=== PATIENT | male | born 1950 | race Caucasian/White ===

== ENCOUNTER → 2019-09-15 09:24 | Outpatient (BNVA) | payer MEDICARE, OTHER, SELFPAY | PROVIDERS: Family Provider Family Medicine; PCP Family Medicine; Visit Provider Specialist | DX: G25.2 Other specified forms of tremor (principal) | CPT/HCPCS: 99204 ==

== ENCOUNTER 2021-08-02 06:00 | Outpatient (RCR) | payer OTHER, SELFPAY | END 2021-08-15 23:59 | disposition home or self-care (01) | LOC: MPT 06:00 | PROVIDERS: PCP Nurse Practitioner Family; Visit Provider Internal Medicine | DX: M54.50 Low back pain, unspecified (principal) | CPT/HCPCS: 97110; 97162 ==

== ENCOUNTER 2021-08-09 07:20 | Outpatient (CLI) | payer OTHER, SELFPAY ==
--- NOTE | 2021-08-09 07:27 | MR_ITS ---
WS: [id number] MRI LUMBAR SPINE NONCONTRAST TECHNIQUE: Sagittal T1, T2 and STIR imaging. Axial T1 and T2 imaging. CLINICAL INFORMATION: R LBP SINCE LAST SPRING, WORSENING COMPARISON: None. FINDINGS: Mild lumbar curve. No acute compression. 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 L1-L2: Normal. L2-L3: Mild annular bulging with slight narrowing of the RIGHT subarticular recess. Foramen are paten t. L3-L4: Mild annular bulging with mild central canal stenosis. Mild facet arthropathy with ligamentum flavum flavum hypertrophy. Narrowing of the subarticular recess bilaterally. Mild bilateral foraminal narrowing. L4-L5: Mild annular bulging in combination with facet arthropathy and ligamentum flavum flavum hypert rophy results in severe central canal stenosis. Impingement traversing L5 nerve roots bilaterally. Mi ld to moderate LEFT greater than RIGHT foraminal narrowing. L5-S1: Mild annular bulging. Spinal canal and foramen are patent. Mild facet arthropathy. Postoperative changes ACDF C5-C7. Small bilateral renal cysts. MR/MR lumbar spine wo con* [id number] IMPRESSION: 1. 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 2. Mild central canal stenosis L3-L4 and severe central canal stenosis L4-L5 w ith mild annular bulging in combination with facet arthropathy and ligamentum f lavum hypertrophy. Impingement traversing L5 nerve roots bilaterally. 3. Slight narrowing of the subarticular recess RIGHT L2-L3 and bilateral L3-L4 . 4. Mild bilateral L3-L4 and udkp-lo-okqixedc bilateral L4-L5 foraminal narrowi ng worse LEFT L4-L5. Small annular fissure. 5. Moderate facet arthropathy L4-L5.
== END 2021-08-09 07:21 | disposition home or self-care (01) ==
LOC: RAD 07:22
PROVIDERS: PCP Nurse Practitioner Family; Visit Provider Nurse Practitioner Family
DX: M48.061 Spinal stenosis, lumbar region without neurogenic claudication (principal); M47.816 Spondylosis without myelopathy or radiculopathy, lumbar region
CPT/HCPCS: 72148

== ENCOUNTER → 2021-09-15 13:30 | Outpatient (BNVA) | payer MEDICARE, SELFPAY | PROVIDERS: PCP Nurse Practitioner Family; Visit Provider Internal Medicine Cardiovascular Disease | DX: G25.0 Essential tremor (principal); E78.5 Hyperlipidemia, unspecified; G62.9 Polyneuropathy, unspecified; I25.10 Atherosclerotic heart disease of native coronary artery without angina pectoris; Z86.73 Personal history of transient ischemic attack (TIA), and cerebral infarction without residual deficits; I12.9 Hypertensive chronic kidney disease with stage 1 through stage 4 chronic kidney disease, or unspecified chronic kidney disease; E11.9 Type 2 diabetes mellitus without complications; N18.9 Chronic kidney disease, unspecified; I73.9 Peripheral vascular disease, unspecified | CPT/HCPCS: 99213; 99214 ==

== ENCOUNTER 2021-09-29 19:01 | Inpatient (IN) | payer MEDICARE, SELFPAY ==
[2021-09-29] VITALS (12 sets, daily range): BP systolic 145–229; BP diastolic 93–133; PULSE 54–61; RESP 14–19; TEMP 36.9; O2SAT 94–96; BMI 33.4
--- NOTE | 2021-09-29 19:10 | ECG_ITS ---
[facility] Test Date: 2021-09-29 Pat Name: Enrique Wong Department: Room: Gender: Male Rn Admission: : 1950 Requested By: Larry Fernando Order Number: [id number] Delilah MD: Sai Venegas M.D. Measurements Intervals [place] Rate: 56 P: 43 ND: 196 QRS: 1 QRSD: 115 T: 42 QT: 438 QTc: 423 Interpretive Statements SINUS BRADYCARDIA INCOMPLETE RIGHT BUNDLE BRANCH BLOCK [90+ ms QRS DURATION, TERMINAL R IN V1/V2, 40+ ms S IN I/aVL/V4/V5/V6] Compared to ECG 03/19/2019 22:17:22 Sinus arrhythmia no longer present Electronically Signed On 09-30-2021 18:15:33 CDT by Sai Venegas M.D. [id number]
--- NOTE | 2021-09-29 19:10 | CTR_ITS ---
PROCEDURE INFORMATION: Exam: CT Head Without Contrast Exam date and time: 09/29/2021 9:16 PM Age: 70 years old Clinical indication: Pain; Patient HX: C/O headache with dizziness and blurry vision. BP over 200 systolic. ; Additional info: Headache dizzy TECHNIQUE: Imaging protocol: Computed tomography of the head without contrast. Radiation optimization: All CT scans at this facility use at least one of these dose optimization techniques: automated exposure control; mA and/or kV adjustment per patient size (includes targeted exams where dose is matched to clinical indication); or iterative reconstruction. COMPARISON: CT head 01/17/2017 9:56 PM RADIATION DOSE METRICS: Total DLP (mGy-cm): 940.25 FINDINGS: Brain: No acute intracranial hemorrhage or mass effect. There is decreased attenuation in the periventricular white matter, likely from microvascular disease. No definite acute infarct by CT. MRI could be more sensitive/specific for detection, as clinically directed. Cerebral ventricles: Ventricle size is normal for age. Paranasal sinuses: Included paranasal sinuses are essentially clear. Mastoid air cells: No significant acute finding. Orbital cavities: Chronic calcification and high attenuation fluid again seen involving the globe in the right orbit, not significantly changed. Vasculature: Vascular calcifications in the internal carotid and vertebral basilar systems. Bones/joints: No definite acute skull fracture. Soft tissues: No significant acute finding. CT/CT head wo con* [id number] IMPRESSION: 1. No acute intracranial hemorrhage or mass effect. 2. Changes of microvascular disease. 3. No definite acute infarct by CT, see above. 4. Other findings discussed above.
--- NOTE | 2021-09-29 19:10 | XRR_ITS ---
PROCEDURE INFORMATION: Exam: XR Chest Exam date and time: 09/29/2021 8:22 PM Age: 70 years old Clinical indication: Other: Dizzy; Additional info: Dizzyness TECHNIQUE: Imaging protocol: XR of the chest. Views: 1 view. COMPARISON: CR Chest 1 [place] [id number] 03/19/2019 7:37 PM FINDINGS: Lungs: No CHF/pulmonary edema. Poor inspiration somewhat limits evaluation, especially of the lung bases. Visible lungs appear essentially clear. Pleural spaces: No visible pneumothorax. No definite pleural fluid. Heart/Mediastinum: Heart size is within normal limits. Bones/joints: No significant acute finding. XR/XR chest 1V portable [id number] IMPRESSION: 1. Essentially unremarkable single view chest for age. 2. Other findings discussed above.
--- NOTE | 2021-09-29 19:39 | ED_ITS ---
HPI - General Adult General: Chief complaint: General Medical Stated complaint: High Blood Pressure\Headache\Dizzy\Blurred Vision Time Seen by Provider: 09/29/21 19:39 History of Present Illness: Mr. Sharpe is a 70-year-old gentleman with significant past medical history of coronary disease with stenting, tremor, carotid stenosis, dyslipidemia, hypertension, diabetes, chronic kidney disease, peripheral arterial disease, history of stroke who presents to the emergency department due to uncontrolled blood pressure. He noticed it worse over the past few days and has never had blood pressure as high as it has greater than 200 systolic. He notes headache, lightheadedness, and generalized unwell feeling. He does have a history of stroke but denies new focal neurologic symptoms associated with this. Course of symptoms has persisted. Intensity is moderate. He does sometimes feel equally as bad as when blood pressure is too low. Baseline at home was probably in the 160-170 range for systolic. He has a history of difficulty with controlling blood pressure and is on a number of antihypertensives. He endorses following with both cardiology Dr. Villanueva at our facility also at the [place]. He was having perhaps improved blood pressure control when he was previously on nifedipine though he had intermittent episodes of hypotension and adverse reactions to this. He was seen by Dr. Villanueva on 09/15 and nifedipine at that time was changed from nighttime, when he woke up with sleep disturbances, to daytime however this caused problems including symptomatic hypotension as well. Apparently he was seen a few days ago by his physician at the [facility] and nifedipine was totally removed. He has still been taking his other medications as prescribed however now has hypertension. Onset (ago): day(s) Severity: moderate Review of Systems General: Reports: 10 or more systems reviewed and unremarkable except in HPI and below PFSH ED PFSH: Medical History ASHD (arteriosclerotic heart disease) Carotid stenosis Chronic pain CKD (chronic kidney disease) CVA (cerebral vascular accident) Diabetes Essential hypertension Essential tremor GERD (gastroesophageal reflux disease) Hyperlipidemia PAD (peripheral artery disease) Peripheral neuropathy SOB (shortness of breath) Tingling of right upper extremity Surgical History S/P angioplasty with stent Family History Other Cancer Diabetes Hypertension Social History Smoking and tobacco status: never smoked Alcohol intake: current Alcohol intake frequency: 0-2 Drinks per Day Alcohol type: beer Household members: spouse Marital status: service: Yes branch: [employer] Current occupational status: employed Current occupation: [employer] Current gender identity: Male Physical Exam Const: COMMON NORMALS: alert GENERAL APPEARANCE: cooperative and well developed HENMT: COMMON NORMALS: normocephalic and atraumatic HEAD & SCALP: normocephalic and atraumatic Eye: COMMON NORMALS: conjunctivae normal CONJUNCTIVA: Yes conjunctivae normal SCLERA: sclerae normal Neck/C-Spine: COMMON NORMALS: supple GENERAL: Yes trachea midline Resp: COMMON NORMALS: clear to auscultation bilaterally EFFORT & INSPECTION: Yes able to speak in complete sentences AUSCULTATION: clear to auscultation bilaterally Cardio: COMMON NORMALS: regular rate and regular rhythm RATE: regular rate RHYTHM: regular rhythm GI: COMMON NORMALS: Soft to palpation PALPATION: Yes Soft to palpation and No Tenderness to palpation present (GI) PERCUSSION: normal to percussion Extremity: GENERAL: Yes normal exam except as noted and No edema Neuro: COMMON NORMALS: moves all extremities SENSORIUM/ORIENTATION: Yes alert and No Orientation impaired OTHER: 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 Fine motor decreased with tremor noted in right upper extremity. Changes reported to be chronic Psych: COMMON NORMALS: mental status grossly normal and Normal thought process present THOUGHT PROCESS: Normal thought process present Course ED course: - Patient was seen and evaluated by me at bedside - Patient placed on cardiac monitors, IV access obtained - Initial evaluation notable for exam as above - Labs and xrays personally interpreted by me. EKGs from 1938 and 2200 personally interpreted by me. Sinus rhythm with borderline interventricular conduction delay. No STEMI. -Antihypertensive ordered - Labs notable for no leukocytosis, normal hemoglobin. Metabolic panel with mild evidence of intravascular dehydration, delta troponin negative. Normal renal function. - Imaging notable for no lobar consolidation or pneumothorax. CT head negative for acute intracranial hemorrhage or mass. - Additional dose of antihypertensive ordered without significant sustained improvement. - As noted in prior cardiology notes patient has a history of difficulty getting to control blood pressure. Discussed with cardiology who recommended overnight observation. Recommend switching metoprolol to amlodipine 10 mg daily, carvedilol 25 mg twice daily, hydralazine increased to every 6 hours, consideration for addition of losartan. - Upon serial reexamination after treatment the patient was similar - Based on patient history, evaluation, and testing as interpreted the most likely cause of the patient's condition is hypertensive urgency - The results of ED evaluation were discussed with the patient including plan for admission due to requirement for level of care not available if discharged to prevent significant worsening/deterioration. - Admitting service was contacted and Dr Vega with the hospitalist service agreed to admit the patient - Patient was admitted without further deterioration or significant events. Note: Click bubbles or prepopulated villalobos in note writing are used for assistance with data collection and billing and are inherently more limited than narrative and other text portions of this note. Please use narrative for additional clinical history and defer to narrative/free test for any case of contradictory information. If information appears in only free text or click bubble it should be considered present or absent as reported. Please contact note life insurance underwriter for clarifications of clinical information or contradictory information. MDM is a brief summary, contradictory or erroneous seeming information should be clarified and full note should be reviewed. Vital Signs: Vital signs: Vital Signs Temperature 98.2 F 10/01/21 12:20 Pulse Rate 87 10/01/21 12:20 Respiratory Rate 23 H 10/01/21 12:20 Blood Pressure 162/84 10/01/21 12:20 Pulse Oximetry 96 10/01/21 12:20 MDM - General Adult Medical Decision Making 70-year-old gentleman with history of difficult to control hypertension on multiple agents with recent discontinuation of nifedipine presenting to the emergency department with headache, lightheadedness, dizziness, and generally unwell feeling associated with chest discomfort. No evidence of endorgan dysfunction. Attempted p.o. medication and IV medication without significant improvement. Treatment limited in the emergency department by bradycardia. Admitted for definitive management after discussion with cardiology. Medical Records I reviewed the patient's medical records. Lab Data I reviewed the patient's lab results. : 10/01/21 03:45 10/01/21 03:45 Radiology Impressions Chest X-Ray 09/29/21 19:10 IMPRESSION: 1. Essentially unremarkable single view chest for age. 2. Other findings discussed above. Head CT 09/29/21 19:10 IMPRESSION: 1. No acute intracranial hemorrhage or mass effect. 2. Changes of microvascular disease. 3. No definite acute infarct by CT, see above. 4. Other findings discussed above. Laboratory Results WBC 7.3 10^3/uL (4.0-10.0) 09/29/21 19:52 RBC 4.54 10^6/uL (4.1-5.3) 09/29/21 19:52 Hgb 13.5 g/dL (11.7-16.6) 09/29/21 19:52 Hct 40.5 % (42.0-52.0) L 09/29/21 19:52 MCV 89.2 fl (80-94) 09/29/21 19:52 MCH 29.7 pg (28.0-34.0) 09/29/21 19:52 MCHC 33.3 g/dL (30.0-36.0) 09/29/21 19:52 RDW 12.1 % (12.1-15.1) 09/29/21 19:52 Plt Count 196 10^3/cmm (130-400) 09/29/21 19:52 MPV 9.6 fL (7.4-10.4) 09/29/21 19:52 Neut % (Auto) 57.0 % 09/29/21 19:52 Lymph % (Auto) 26.6 % 09/29/21 19:52 [place] % (Auto) 10.7 % 09/29/21 19:52 Eos % (Auto) 4.2 % 09/29/21 19:52 Baso % (Auto) 1.4 % 09/29/21 19:52 Neut # (Auto) 4.17 10^3/uL (1.8-7.7) 09/29/21 19:52 Lymph # (Auto) 2.0 10^3/uL (0.8-4.8) 09/29/21 19:52 [place] # (Auto) 0.8 10^3/uL (0.2-0.9) 09/29/21 19:52 Eos # (Auto) 0.3 10^3/uL (0.0-0.8) 09/29/21 19:52 Baso # (Auto) 0.1 10^3/uL (0.0-0.1) 09/29/21 19:52 Nucleated RBC % (auto) 0 % 09/29/21 19:52 Nucleated RBCs # 0.0 /100WBC 09/29/21 19:52 Sodium 133 mmol/L (136-145) L 09/29/21 19:52 Potassium 4.4 mmol/L (3.5-5.1) 09/29/21 19:52 Chloride 96 mmol/L (98-107) L 09/29/21 19:52 Carbon Dioxide 30 mmol/L (22-29) H 09/29/21 19:52 Anion Gap 11.4 (5-19) 09/29/21 19:52 BUN 16 mg/dL (8-23) 09/29/21 19:52 Creatinine 1.2 mg/dL (0.7-1.2) 09/29/21 19:52 GFR Calculation Not Reportable 09/29/21 19:52 Glucose 145 mg/dL (65-115) H 09/29/21 19:52 Calculated Osmolality 280 mOsm/kg (285-295) L 09/29/21 19:52 Calcium 9.3 mg/dL (8.5-10.5) 09/29/21 19:52 Magnesium 1.9 mg/dL (1.7-2.3) 09/29/21 19:52 Total Bilirubin 0.2 mg/dL (0.15-1.2) 09/29/21 19:52 AST 16 U/L (0-40) 09/29/21 19:52 ALT 23 U/L (0-41) 09/29/21 19:52 Alkaline Phosphatase 60 IU/L (40-130) 09/29/21 19:52 Troponin T Baseline 19 ng/L (0-15) H 09/29/21 19:52 Troponin T 120 Minute 18.06 ng/L (0-15) H 09/29/21 21:52 Delta Troponin T -0.94 ABS# (0-10) L 09/29/21 21:52 Total Protein 7.3 g/dL (6.6-8.7) 09/29/21 19:52 Albumin 4.3 g/dL (3.5-5.2) 09/29/21 19:52 Globulin 3.0 g/dL (1.3-4.6) 09/29/21 19:52 TSH 1.74 uIU/mL (0.27-4.20) 09/29/21 19:52 Discharge Plan Discharge Patient Disposition: Placed in Observation Admit Provider: Chris Vega Clinical Impression: Hypertensive urgency Discharge Diet: Cardiac Discharge Activity: Increase activity as tolerated Coding Level of Care Code ED Volleyball Assistant Coach for Chg Fwd Exam Comprehensive
[2021-09-29 19:57] LABS: Basophils # 0.1 10^3/uL (0.0-0.1); Basophils % 1.4 %; Eosinophils # 0.3 10^3/uL (0.0-0.8); Eosinophils % 4.2 %; Hematocrit 40.5 % (42.0-52.0); Hemoglobin 13.5 g/dL (11.7-16.6); Lymphocytes % 26.6 %; Mean Corpuscular HGB Conc 33.3 g/dL (30.0-36.0); Mean Corpuscular Hemoglobin 29.7 pg (28.0-34.0); Mean Corpuscular Volume 89.2 fl (80-94); Mean Platelet Volume 9.6 fL (7.4-10.4); Monocytes # 0.8 10^3/uL (0.2-0.9); Monocytes % 10.7 %; Neutrophils # 4.17 10^3/uL (1.8-7.7); Nucleated Red Blood Cells % 0 %; Platelet Count 196 10^3/cmm (130-400); Red Blood Count 4.54 10^6/uL (4.1-5.3); Red Cell Distribution Width 12.1 % (12.1-15.1); White Blood Count 7.3 10^3/uL (4.0-10.0)
[2021-09-29] MEDS: hyDRALAzine 20 mg/mL INJ 1 mL 10 MG IVP ×2 (20:18→23:34)
[2021-09-29 20:20] LABS: Troponin(5th) Baseline 19 ng/L (0-15)
[2021-09-29 20:30] LABS: Alanine Aminotransferase 23 U/L (0-41); Albumin Level 4.3 g/dL (3.5-5.2); Alkaline Phosphatase 60 IU/L (40-130); Anion Gap 11.4 (5-19); Aspartate Amino Transferase 16 U/L (0-40); Blood Urea Nitrogen 16 mg/dL (8-23); Calcium 9.3 mg/dL (8.5-10.5); Carbon Dioxide 30 mmol/L (22-29); Chloride 96 mmol/L (98-107); Glucose 145 mg/dL (65-115); Magnesium 1.9 mg/dL (1.7-2.3); Osmolality Calculated 280 mOsm/kg (285-295); Potassium 4.4 mmol/L (3.5-5.1); Sodium 133 mmol/L (136-145); Thyroid Stimulating Hormone 1.74 uIU/mL (0.27-4.20); Total Bilirubin 0.2 mg/dL (0.15-1.2); Total Protein 7.3 g/dL (6.6-8.7)
--- NOTE | 2021-09-29 21:10 | ECG_ITS ---
[facility] Test Date: 2021-09-29 Pat Name: Enrique Wong Department: Room: Gender: Male Reo Asset Manager: : 1950 Requested By: Larry Fernando Order Number: [id number] Delilah MD: Sai Venegas M.D. Measurements Intervals [place] Rate: 57 P: 52 NM: 193 QRS: 7 QRSD: 122 T: 43 QT: 463 QTc: 454 Interpretive Statements SINUS BRADYCARDIA POSSIBLE RIGHT VENTRICULAR CONDUCTION DELAY [RSR (QR) IN V1/V2] Compared to ECG 09/29/2021 19:38:10 Incomplete right bundle-branch block no longer present Electronically Signed On 09-30-2021 18:22:17 CDT by Sai Venegas M.D. [id number]
[2021-09-29] MEDS: hyDRALAzine 25 mg Tablet 100 MG PO (22:14)
[2021-09-29 22:32] LABS: Troponin 5 2HR 18.06 ng/L (0-15)
[2021-09-29 22:34] LABS: Troponin 5 2HR Delta -0.94 ABS# (0-10)
[2021-09-29] MEDS: amlodipine 5 mg Tablet PO (23:35)
[2021-09-29] MEDS: carvedilol 25 mg Tablet PO (23:35)
[2021-09-30] VITALS (33 sets, daily range): BP systolic 85–192; BP diastolic 41–91; PULSE 54–81; RESP 13–23; TEMP 36.4–36.6; O2SAT 91–95; BMI 30.6
--- NOTE | 2021-09-30 00:27 | ECG_ITS ---
[facility] Test Date: 2021-09-30 Pat Name: Enrique Wong Department: Room: 105 Gender: Male Coordinator Of Genetic Services: : 1950 Requested By: Chris Vega Order Number: [id number] Delilah MD: Sai Venegas M.D. Measurements Intervals [place] Rate: 57 P: 32 DC: 184 QRS: 8 QRSD: 102 T: 37 QT: 443 QTc: 432 Interpretive Statements SINUS BRADYCARDIA Compared to ECG 09/29/2021 22:00:54 No significant changes Electronically Signed On 09-30-2021 18:17:03 CDT by Sai Venegas M.D. [email or web address] [facility]ftsfr[facility] [email or web address]-rittman [email or web address]/store/OM/[id number]
--- NOTE | 2021-09-30 00:30 | P.HP_ITS ---
Providers/Chief Complaint Primary Care Provider: Charlene Webb NP Chief Complaint: High Blood Pressure\Headache\Dizzy\Blurred Vision History of Present Illness The patient is a 70-year-old male who presents chief complaint of my blood pressure got too high . Per the patient's , his blood pressure has been running high for the last few days leading up to his hospitalization. He indicates that he developed headache as well as blurry vision. He also admits to lightheadedness. He denies chest pain, dyspnea, dizziness, diaphoresis, palpitations, since rapid heartbeat, sense of new regular heartbeat. He denies diplopia. He denies peripheral edema. In the emergency department his blood pressure was found to be elevated. The patient's , who is the patient's primary personal caregiver, indicates that the patient is compliant with medication intake however it appears questionable as to whether he is compliant with appoin tment follow-up. He presents for further evaluation Review of Systems General: Reports: 10 or more systems reviewed and unremarkable except in HPI and below Medications/Allergies Home Medications Medication Instructions Recorded Confirmed Last Taken Type aspirin 81 mg tablet,delayed 81 mg PO DAILY tab 07/01/19 09/29/21 09/29/21 History release (Adult Low Dose Aspirin) fluticasone propionate 50 1 spray INTRANASAL BID 07/01/19 09/29/21 09/29/21 History mcg/actuation nasal spray,suspension (Allergy Relief (fluticasone)) melatonin 3 mg tablet (Melatin) 3 mg PO BEDTIME tab 07/01/19 09/29/21 09/28/21 History nitroglycerin 0.4 mg sublingual 0.4 mg SUBLINGUAL Q5M PRN 07/01/19 09/29/21 Unknown History tablet (Nitrostat) omega-3 fatty acids 1,000 mg 1,000 mg PO BID 07/01/19 09/29/21 09/29/21 History capsule (Fish Oil Concentrate) omeprazole 20 mg capsule,delayed 20 mg PO DAILY cap 07/01/19 09/29/21 09/29/21 History release tamsulosin 0.4 mg capsule 0.4 mg PO DAILY cap 07/01/19 09/29/21 09/29/21 History metformin 500 mg tablet 1,000 mg PO BID tab 09/15/19 09/29/21 09/29/21 History rosuvastatin 40 mg tablet (Crestor) 20 mg PO BEDTIME tab 09/15/19 09/29/21 09/28/21 History primidone 50 mg tablet 50 mg PO BEDTIME tab 06/15/20 09/29/21 09/28/21 History cinnamon bark 500 mg capsule 1,000 mg PO DAILY cap 01/06/21 09/29/21 09/29/21 History (Cinnamon) coenzyme Q10 200 mg/gram oral 100 mg PO DAILY g 01/06/21 09/29/21 09/29/21 History powder (H2Q CoQ10) mecobalamin (vitamin B12) 1,000 2,500 mcg SUBLINGUAL DAILY tab 01/06/21 09/29/21 09/29/21 History mcg disintegrating tablet,sublingual triamcinolone acetonide 0.1 % 1 applic TOPICAL DAILY 01/06/21 09/29/21 Unknown History topical cream alprazolam 0.5 mg tablet 0.5 mg PO BID PRN tab 02/22/21 09/29/21 09/29/21 History magnesium oxide 400 mg PO DAILY 02/22/21 09/29/21 09/29/21 History hydralazine 100 mg tablet 100 mg PO TID tab 09/15/21 09/29/21 09/29/21 History loratadine 10 mg capsule 10 mg PO DAILY 09/15/21 09/29/21 09/29/21 History losartan 100 mg tablet 100 mg PO DAILY 09/15/21 09/29/21 09/29/21 History metoprolol succinate 100 mg 100 mg PO BID tab 09/15/21 09/29/21 09/29/21 History tablet,extended release 24 hr nifedipine 60 mg tablet,extended 60 mg PO DAILY 09/15/21 09/29/21 09/29/21 History release sertraline 100 mg tablet 100 mg PO DAILY 09/15/21 09/29/21 09/29/21 History Allergies Allergy/AdvReac Type Severity Reaction Status Date / Time paroxetine [From Paxil] Allergy Severe Unconscious Verified 09/15/21 14:04 PFSH Acute PFSH: Medical History ASHD (arteriosclerotic heart disease) Carotid stenosis Chronic pain CKD (chronic kidney disease) CVA (cerebral vascular accident) Diabetes Essential hypertension Essential tremor GERD (gastroesophageal reflux disease) Hyperlipidemia PAD (peripheral artery disease) Peripheral neuropathy SOB (shortness of breath) Tingling of right upper extremity Surgical History S/P angioplasty with stent Family History Other Cancer Diabetes Hypertension Social History Smoking and tobacco status: never smoked Alcohol intake: current Alcohol intake frequency: 0-2 Drinks per Day Alcohol type: beer Household members: spouse Marital status: service: Yes branch: [employer] Current occupational status: employed Current occupation: [employer] Current gender identity: Male Vitals/I&O/Wt Last Vital Signs Temp 98.5 F 09/29/21 19:20 Pulse 56 L 09/29/21 23:30 Resp 15 09/29/21 23:30 BP 194/97 09/29/21 23:30 Pulse Ox 95 09/29/21 23:30 Weight last 48 hrs Weight 99.79 kg Data : 09/29/21 19:52 09/29/21 19:52 A&P Assessment and plan (1) Hypertensive urgency: Status: Acute Plan Hypertensive emergency. Will monitor blood pressure closely. Hydralazine 100 mg p.o. 3 times daily plus clonidine 0.3 mg p.o. twice daily plus losartan 100 mg p.o. daily plus Imdur 90 mg p.o. daily Neuropathy Chronic pain BPH Depression Essential tremor Elevated troponin, query ACS. This may be a sequelae of hypertensive emergency. Will monitor patient on telemetry and check serial cardiac enzymes and monitor EKG periodically Hyponatremia. Will monitor sodium level intermittently. I am hesitant to start the patient on IV fluids at this time given his hypertensive emergency Seasonal allergies Anxiety Coronary artery disease, status post stent, status post angioplasty. Imdur 90 mg daily Diabetes. Will check fingerstick glucose before every meal and at bedtime and provide ? scale GERD Hyperlipidemia Obesity. The patient be counseled regarding left eye modification Peripheral vascular disease with carotid stenosis, patient status post left carotid endarterectomy History of CVA DVT prophylaxis. Bilateral SCD Attestations Medical Necessity Statement*: Patient's anticipated length of stay is greater than 2 midnights for control of his hypertensive emergency Coding Level of Care Code Acute Personnel Specialist for Prashantg Fwd Diagnoses Hypertensive urgency I16.0
[2021-09-30] MEDS: isosorbide mononitrate ER 60 mg Tablet 90 MG PO (02:28)
[2021-09-30] MEDS: cloNIDine 0.1 mg Tablet 0.3 MG PO (02:29)
[2021-09-30] MEDS: losartan 50 mg Tablet 100 MG PO (02:29)
[2021-09-30] MEDS: hyDRALAzine 25 mg Tablet 100 MG PO ×2 (02:30→16:29)
--- NOTE | 2021-09-30 04:08 | PC.NURSE ---
Blood pressure is down from 192/91 at 0240 to 94/47 now. He denies any dizziness or lightheadedness presently. He also reports his headache is gone. Informed Dr Vega. No new orders received presently.
[2021-09-30 06:24] LABS: Glucose Point of Care 147 mg/dL (70-110)
[2021-09-30 06:44] LABS: Anion Gap 14.7 (5-19); Blood Urea Nitrogen 18 mg/dL (8-23); Calcium 8.2 mg/dL (8.5-10.5); Carbon Dioxide 27 mmol/L (22-29); Chloride 100 mmol/L (98-107); Glucose 161 mg/dL (65-115); Osmolality Calculated 289 mOsm/kg (285-295); Potassium 4.7 mmol/L (3.5-5.1); Sodium 137 mmol/L (136-145)
--- NOTE | 2021-09-30 07:19 | PC.NURSE ---
received bedside report from night rn. at bedside, pt resting comfortably. no needs identified at this time. bp 94/54. reviewed poc and assumed care of patient.
[2021-09-30] MEDS: pantoprazole DR 40 mg Tablet PO (08:25)
[2021-09-30] MEDS: aspirin 81 mg EC Tablet PO (08:25)
[2021-09-30] MEDS: insulin lispro 100 unit/1 mL SUBCUT ×3 (08:25→20:47)
[2021-09-30] MEDS: sertraline 100 mg Tablet PO (08:25)
[2021-09-30] MEDS: fluticasone nasal spray 16gm Btl 1 SPRAY INTRANASAL (08:25)
--- NOTE | 2021-09-30 10:44 | PC.CHAP ---
Pastoral Care Encounter/Spiritual Assessment Type of Contact [] Declined traffic recorder visit [] Patient/Family/Request visit [] Outpatient visit [] Follow-up visit [] Physician referral [] Code/Alert [x] Routine visit [] Staff referral [] Actively dying [] Patient sleeping [x] Family support [] [] Out of room [] Palliative care [] [] Receiving care in room [] Pre-surgical visit [] Trauma [] Long length of stay [] ICU visit [] Other: Relational/Emotional Strength [] Patient feels connected with others/family/visitors/staff [] Distress [] Loneliness/isolation [] Abandonment Spirituality of Patient [] Person of Cindy [] Attends Islam of their Cindy [] Believes in Prayer [] Reads Bible or Adventism materials [] There are Spiritual issues to be addressed Matcher Offbearer Interventions [x] Prayer [x] Active listening [x] Non-anxious presence [x] Spiritual/emotional support [] Crisis/trauma care [] Spiritual counseling [] Bereavement support [] Provided bereavement packet [] Provided Bible/devotional materials [] Provided toy/stuffed animal, coloring book to patient or family member [] Provided Communion [] Anointing/Blackey [] Salvation [x] Completed spiritual assessment [] Other: Impact on Illness or Injury [] Angry [] Fearful [] Anxious [] Often cries [] Exhaustion [] Unable to work [] Unable to attend church [] Unable to walk/stand [] Unable to read [] Unable to drive [] Unable to eat/drink [] Unable to sleep [] Unable to be with family [] Patient intubated [] Other: Summary patient resting Time spent with patient 10 min
[2021-09-30 10:49] LABS: Glucose Point of Care 172 mg/dL (70-110)
--- NOTE | 2021-09-30 13:05 | USCV_ITS ---
Enrique Wogn Age: 70 Gender: M : 1950 Exam Date: 09/30/2021 14:23 Ordering Phys: Hay Haider MD Technologist: Exam Location: [facility] [place] Indication: Shortness of breath BP: 127 / 65 HR: 65 Rhythm: Sinus Technical Quality: Adequate MEASUREMENTS (Male / Female) Normal Values 2D ECHO LV Diastolic Diameter PLAX 4.2 cm 4.2 - 5.9 / 3.9 - 5.3 cm LV Systolic Diameter PLAX 3.1 cm IVS Diastolic Thickness 1.1 cm 0.6 - 1.0 / 0.6 - 0.9 cm IVS Systolic Thickness 1.5 cm LVPW Diastolic Thickness 1.5 cm 0.6 - 1.0 / 0.6 - 0.9 cm LVPW Systolic Thickness 1.7 cm LVOT Diameter 2.1 cm LV Ejection Fraction 2D Teich 43.5 % LA Diameter 4.2 cm M-MODE Aortic Annulus Diameter 3.6 cm LA Ao Ratio MM 1.3 MV E Point Septal Separation 1.1 cm DOPPLER AV Peak Velocity 168.0 cm/s LVOT Peak Velocity 82.0 cm/s AV Area Cont Eq vti 1.8 cm squared AV Area Cont Eq pk 1.6 cm squared MV Area PHT 5.0 cm squared Mitral E to A Ratio 1.0 MV E' Velocity 35.0 cm/s Mitral E to MV E' Ratio 11.0 Mitral E to LV E' Lateral Ratio 9.5 Mitral E to LV E' Septal Ratio 13.1 TR Peak Velocity 115.7 cm/s TR Peak Gradient 5.4 mmHg Right Atrial Pressure 3.0 mmHg Pulmonary Artery Systolic Pressu 8.4 mmHg PV Peak Velocity 123.0 cm/s FINDINGS Left Ventricle Normal left ventricular size, systolic function and mildly increased wall thickness, with no regional wall motion abnormalities. Left ventricular ejection fraction is estimated at 70 %. Normal diastolic function. Right Ventricle Normal right ventricular size and systolic function. Right ventricular systolic pressure 8.4 mmHg. Right Atrium Normal right atrial size. Left Atrium Normal left atrial size. Mitral Valve Mild mitral annular calcification. Structurally normal mitral valve. No mitral valve stenosis. Trace mitral valve regurgitation. Aortic Valve Mildly thickened sclerotic trileaflet aortic valve. No aortic valve stenosis. No aortic valve regurgitation. Tricuspid Valve Structurally normal tricuspid valve. Pulmonic Valve Pulmonic valve not well visualized. No pulmonary valve stenosis. No pulmonary valve regurgitation. Pericardium No pericardial effusion. Aorta Normal size aortic root. CONCLUSIONS 1. Normal left ventricular size, systolic function and mildly increased wall thickness, with no regional wall motion abnormalities. Left ventricular ejection fraction is estimated at 70 %. Normal diastolic function. 2. No significant valvular abnormality. 3. No prior similar studies to compare. America Su MD (Electronically Signed) Final Date: 30 September 2021 22:15 S
--- NOTE | 2021-09-30 13:10 | PM.PN ---
Subjective Subjective: Says he is feeling lightheaded, seeing spots while sitting up eating his breakfast. Blood pressure soft 104/62. Asked him to lay down in bed. Asked him to maintain bedrest, as although he is not hypotensive, blood pressure significantly lower than what he came in with. If blood pressure remaining soft discussed giving small bolus. He and his are agreeable. His states that he was also taking nifedipine at home, although not infrequently would get hypotensive episodes which would make him feel ill, nauseated. She had asked the primary provider whether nifedipine could be split into 30 mg twice daily dosing but had not yet gotten an answer. Discussed with them where for now held all his antihypertensives given soft blood pressure. Currently blood pressure is improving, reported to be 132/68. Vitals/I&O/Wt Last Vital Signs Temp 97.9 F 09/30/21 12:00 Pulse 67 09/30/21 13:00 Resp 18 09/30/21 13:00 BP 132/68 09/30/21 13:00 Pulse Ox 92 09/30/21 13:00 09/29/21 09/30/21 09/30/21 22:59 06:59 14:59 Intake Total 118 / 118 Balance 118 / 118 Weight last 48 hrs Weight 91.342 kg Weight 99.79 kg Physical Exam Const: COMMON NORMALS: alert GENERAL APPEARANCE: cooperative ORIENTATION/CONSCIOUSNESS: Yes awake HENMT: COMMON NORMALS: normocephalic, EAC's normal, Normal external nose present and moist oral mucous membranes HEAD & SCALP: normocephalic NOSE: Normal external nose present EXTERNAL AUDITORY CANAL: EAC's normal Neck/C-Spine: COMMON NORMALS: no meningeal signs Chest: CHEST: Yes Symmetrical chest wall rise Resp: COMMON NORMALS: clear to auscultation bilaterally AUSCULTATION: clear to auscultation bilaterally Cardio: COMMON NORMALS: regular rate, regular rhythm and No murmurs present (Cardio) RATE: regular rate RHYTHM: regular rhythm GI: COMMON NORMALS: Normal to inspection, nondistended, normoactive bowel sounds present, Soft to palpation and non-tender PALPATION: Yes Soft to palpation Extremity: COMMON NORMALS: no pedal edema Neuro: COMMON NORMALS: moves all extremities SENSORIUM/ORIENTATION: Yes alert MENINGEAL SIGNS: Yes no meningeal signs Psych: COMMON NORMALS: mental status grossly normal Skin: COMMON NORMALS: no wounds RASHES: no rashes Data : 09/29/21 19:52 09/30/21 06:00 A&P Assessment and plan (1) Hypertensive urgency: Blood pressure medications held due to hypotension. Requested for bedrest. Symptomatic this morning while sitting up eating breakfast. Blood pressures appear to be improving, however. Discussed with him and his . Once blood pressures steady/rising, and he is no longer symptomatic will resume his home medications. Discussed also regarding nifedipine which appears to give him intermittent hypotension at home making him feel ill. May not be the best choice of medication in older adults. In case they want to continue, perhaps decreasing to 30 mg and keeping it on as-needed basis in case blood pressure is starting to rise very high may be a way to keep it on board. Discussed with them frequent monitoring of blood pressure which they state they do. Discussed early treatment in case of seeing rising blood pressure which may be easier to help abort the very high blood pressure levels which are then difficult to treat. They verbalized understanding. He does reduce salt intake. Status: Acute (2) CKD (chronic kidney disease): Status: Acute Qualifiers: Chronic kidney disease stage: unspecified stage Qualified Code(s): N18.9 - Chronic kidney disease, unspecified Plan Hypertensive emergency on presentation Neuropathy Chronic pain BPH Depression Essential tremor Elevated troponin, query ACS. Likely demand secondary to hypertension. Denies chest pain or pressure. Minimal elevation of troponin without significant peak. Hyponatremia. Resolved Seasonal allergies Anxiety Coronary artery disease, status post stent, status post angioplasty. Imdur 90 mg daily Diabetes. Continue consistent carbohydrate diet. Sliding scale insulin. GERD Hyperlipidemia Obesity. Resume follow-up with PMD. Peripheral vascular disease with carotid stenosis, patient status post left carotid endarterectomy History of CVA DVT prophylaxis. Bilateral SCD Attestations Medical Necessity Statement*: Requires further hospitalization for resumption of antihypertensives after low blood pressure, optimization of blood pressure control after presentation with hypertensive emergency. Coding Level of Care Code Acute Marketing Proposal Specialist for [facility] Fwd Diagnoses Hypertensive urgency I16.0 CKD (chronic kidney disease) N18.9 Chronic kidney disease stage: unspecified stage
[2021-09-30] MEDS: acetaminophen 325 mg Tablet 650 MG PO (16:20)
[2021-09-30 17:01] LABS: Glucose Point of Care 129 mg/dL (70-110)
[2021-09-30 20:20] LABS: Glucose Point of Care 197 mg/dL (70-110)
[2021-09-30] MEDS: atorvastatin 40 mg Tablet 80 MG PO (20:47)
[2021-10-01] VITALS (9 sets, daily range): BP systolic 139–170; BP diastolic 75–89; PULSE 87–104; RESP 15–23; TEMP 36.8–37.2; O2SAT 90–96
[2021-10-01] MEDS: hyDRALAzine 25 mg Tablet 100 MG PO ×2 (00:10→08:49)
[2021-10-01 04:45] LABS: Basophils # 0.1 10^3/uL (0.0-0.1); Basophils % 0.7 %; Eosinophils # 0.2 10^3/uL (0.0-0.8); Eosinophils % 1.3 %; Hematocrit 37.6 % (42.0-52.0); Hemoglobin 12.5 g/dL (11.7-16.6); Lymphocytes # 1.9 10^3/uL (0.8-4.8); Lymphocytes % 15.4 %; Mean Corpuscular HGB Conc 33.2 g/dL (30.0-36.0); Mean Corpuscular Hemoglobin 29.6 pg (28.0-34.0); Mean Corpuscular Volume 88.9 fl (80-94); Mean Platelet Volume 9.9 fL (7.4-10.4); Monocytes # 1.3 10^3/uL (0.2-0.9); Monocytes % 11.1 %; Neutrophils # 8.58 10^3/uL (1.8-7.7); Neutrophils % 71.3 %; Nucleated Red Blood Cells % 0 %; Platelet Count 197 10^3/cmm (130-400); Red Blood Count 4.23 10^6/uL (4.1-5.3); Red Cell Distribution Width 12.4 % (12.1-15.1)
[2021-10-01 05:09] LABS: Alanine Aminotransferase 15 U/L (0-41); Albumin Level 4.1 g/dL (3.5-5.2); Alkaline Phosphatase 65 IU/L (40-130); Anion Gap 15.3 (5-19); Aspartate Amino Transferase 14 U/L (0-40); Blood Urea Nitrogen 22 mg/dL (8-23); Calcium 9.2 mg/dL (8.5-10.5); Carbon Dioxide 26 mmol/L (22-29); Chloride 99 mmol/L (98-107); Globulin 3.1 g/dL (1.3-4.6); Glucose 146 mg/dL (65-115); Osmolality Calculated 288 mOsm/kg (285-295); Potassium 4.3 mmol/L (3.5-5.1); Sodium 136 mmol/L (136-145); Total Bilirubin 0.4 mg/dL (0.15-1.2); Total Protein 7.2 g/dL (6.6-8.7)
[2021-10-01 06:15] LABS: Glucose Point of Care 164 mg/dL (70-110)
--- NOTE | 2021-10-01 08:42 | PC.NURSE ---
Patient and visitor requested for coffee, okay by nurse. Coffee given to patient and visitor.
[2021-10-01] MEDS: insulin lispro 100 unit/1 mL SUBCUT (08:47)
[2021-10-01] MEDS: sertraline 100 mg Tablet PO (08:48)
[2021-10-01] MEDS: pantoprazole DR 40 mg Tablet PO (08:48)
[2021-10-01] MEDS: fluticasone nasal spray 16gm Btl 1 SPRAY INTRANASAL (08:49)
[2021-10-01] MEDS: aspirin 81 mg EC Tablet PO (08:49)
[2021-10-01 11:53] LABS: Glucose Point of Care 165 mg/dL (70-110)
--- NOTE | 2021-10-01 13:25 | PC.NURSE ---
Discharge Note Patient discharged to home via wheelchair accompanied by family. Discharge instructions reviewed with patient and/or patient account representative. Mobile pharmacy medications and/or prescriptions provided. Belongings/home medications returned.
--- NOTE | 2021-10-01 14:17 | PM.DCS ---
Discharge Providers Date of Admission: 09/30/21 00:25 Date of Discharge: October 01, 2021 Attending Provider at Admission: Chris Vega DO Attending Provider at Discharge: Hay Haider Primary Care Provider: Charlene Webb NP Diagnoses at Discharge Discharge Diagnosis (1) Hypertensive urgency: Status: Acute (2) CKD (chronic kidney disease): Status: Acute Qualifiers: Chronic kidney disease stage: unspecified stage Qualified Code(s): N18.9 - Chronic kidney disease, unspecified Reason for Visit Reason for Visit: High Blood Pressure\Headache\Dizzy\Blurred Vision Hospital Course Hospital Course Pleasant 70-year-old gentleman with history of resistant hypertension for which he has been following with hypertension specialist, recently had renal artery and carotid artery duplex ultrasounds done, on multiple blood pressure medications, as well as with other medical history that includes chronic kidney disease, CVA, PAD, HLD, ASHD, was admitted after presenting with symptomatic hypertension with headache, blurred vision, lightheadedness, blood pressure in ER up to 219 systolic, 133 diastolic, received hydralazine IV, hydralazine, carvedilol, amlodipine by mouth, then started on clonidine, Imdur, resumed on metoprolol, losartan overnight, however, all antihypertensives had to be held as his blood pressure subsequently was found to be low, as low as as low as the 90s, 87/48 at lowest point in the morning. All antihypertensives were held and blood pressure spontaneously recovered, he was resumed gradually on oral hydralazine, then continued on clonidine, Imdur, losartan was held due to noted mild RAMIRO on CKD, creatinine 1.7, usually running 1.2-1.4. At home he also takes nifedipine, but has found that with nifedipine his blood pressure is going down too low. He recently tried switching nifedipine to the daytime dose, but he and his still noticed that after taking it blood pressure would still go into low 100s, he would feel nauseated and unwell. Due to this he is asked to discontinue the nifedipine 60 mg. He is continued on metoprolol, p.o. hydralazine, clonidine, Imdur. Losartan for now is on hold until his renal function is found stable. He is given prescription for 20 mg nifedipine but only to be used as needed in case of persistently rising blood pressures not responding to his usual medications. He and his are also made aware of potential of rebound hypertension effect with clonidine. As per discussion he and his monitor his blood pressures very closely at home. They will continue to do so, and in case of difficult to control blood pressure seek medical attention. He is otherwise feeling well today, he has been up and ambulating, denies any chest pain or pressure, no shortness of breath and feels ready to return home with continued outpatient follow-up. Physical Exam Narrative: at bedside Const: COMMON NORMALS: alert GENERAL APPEARANCE: cooperative ORIENTATION/CONSCIOUSNESS: Yes awake HENMT: COMMON NORMALS: normocephalic, EAC's normal, Normal external nose present and moist oral mucous membranes HEAD & SCALP: normocephalic NOSE: Normal external nose present EXTERNAL AUDITORY CANAL: EAC's normal OTHER: Right eye prosthesis. Neck/C-Spine: COMMON NORMALS: no meningeal signs Chest: CHEST: Yes Symmetrical chest wall rise Resp: COMMON NORMALS: clear to auscultation bilaterally AUSCULTATION: clear to auscultation bilaterally Cardio: COMMON NORMALS: regular rate, regular rhythm and No murmurs present (Cardio) RATE: regular rate RHYTHM: regular rhythm GI: COMMON NORMALS: Normal to inspection, nondistended, normoactive bowel sounds present, Soft to palpation and non-tender PALPATION: Yes Soft to palpation Extremity: COMMON NORMALS: no pedal edema Neuro: COMMON NORMALS: moves all extremities SENSORIUM/ORIENTATION: Yes alert MENINGEAL SIGNS: Yes no meningeal signs Psych: COMMON NORMALS: mental status grossly normal Skin: COMMON NORMALS: no wounds RASHES: no rashes Discharge Data Studies Completed and Pending Completed Studies During Hospitalization Category Date Time Status CT head wo con* [id number] Urgent Cat Scan 09/29/21 19:10 Completed XR chest 1V portable [id number] Stat Exams 09/29/21 19:10 Completed CV. echo complete* [id number] Routine Ultrasound 09/30/21 13:05 Completed Radiology Impressions Chest X-Ray 09/29/21 19:10 IMPRESSION: 1. Essentially unremarkable single view chest for age. 2. Other findings discussed above. Head CT 09/29/21 19:10 IMPRESSION: 1. No acute intracranial hemorrhage or mass effect. 2. Changes of microvascular disease. 3. No definite acute infarct by CT, see above. 4. Other findings discussed above. Laboratory Results WBC 12.0 10^3/uL (4.0-10.0) H 10/01/21 03:45 RBC 4.23 10^6/uL (4.1-5.3) 10/01/21 03:45 Hgb 12.5 g/dL (11.7-16.6) 10/01/21 03:45 Hct 37.6 % (42.0-52.0) L 10/01/21 03:45 MCV 88.9 fl (80-94) 10/01/21 03:45 MCH 29.6 pg (28.0-34.0) 10/01/21 03:45 MCHC 33.2 g/dL (30.0-36.0) 10/01/21 03:45 RDW 12.4 % (12.1-15.1) 10/01/21 03:45 Plt Count 197 10^3/cmm (130-400) 10/01/21 03:45 MPV 9.9 fL (7.4-10.4) 10/01/21 03:45 Neut % (Auto) 71.3 % 10/01/21 03:45 Lymph % (Auto) 15.4 % 10/01/21 03:45 Villalba % (Auto) 11.1 % 10/01/21 03:45 Eos % (Auto) 1.3 % 10/01/21 03:45 Baso % (Auto) 0.7 % 10/01/21 03:45 Neut # (Auto) 8.58 10^3/uL (1.8-7.7) H 10/01/21 03:45 Lymph # (Auto) 1.9 10^3/uL (0.8-4.8) 10/01/21 03:45 Villalba # (Auto) 1.3 10^3/uL (0.2-0.9) H 10/01/21 03:45 Eos # (Auto) 0.2 10^3/uL (0.0-0.8) 10/01/21 03:45 Baso # (Auto) 0.1 10^3/uL (0.0-0.1) 10/01/21 03:45 Nucleated RBC % (auto) 0 % 10/01/21 03:45 Nucleated RBCs # 0.0 /100WBC 10/01/21 03:45 Sodium 136 mmol/L (136-145) 10/01/21 03:45 Potassium 4.3 mmol/L (3.5-5.1) 10/01/21 03:45 Chloride 99 mmol/L (98-107) 10/01/21 03:45 Carbon Dioxide 26 mmol/L (22-29) 10/01/21 03:45 Anion Gap 15.3 (5-19) 10/01/21 03:45 BUN 22 mg/dL (8-23) 10/01/21 03:45 Creatinine 1.7 mg/dL (0.7-1.2) H 10/01/21 03:45 GFR Calculation Not Reportable 10/01/21 03:45 Glucose 146 mg/dL (65-115) H 10/01/21 03:45 POC Glucose 165 mg/dL (70-110) H 10/01/21 11:29 Calculated Osmolality 288 mOsm/kg (285-295) 10/01/21 03:45 Calcium 9.2 mg/dL (8.5-10.5) 10/01/21 03:45 Magnesium 1.9 mg/dL (1.7-2.3) 09/29/21 19:52 Total Bilirubin 0.4 mg/dL (0.15-1.2) 10/01/21 03:45 AST 14 U/L (0-40) 10/01/21 03:45 ALT 15 U/L (0-41) 10/01/21 03:45 Alkaline Phosphatase 65 IU/L (40-130) 10/01/21 03:45 Troponin T Baseline 19 ng/L (0-15) H 09/29/21 19:52 Troponin T 120 Minute 18.06 ng/L (0-15) H 09/29/21 21:52 Delta Troponin T -0.94 ABS# (0-10) L 09/29/21 21:52 Troponin T Hi Sens 6Hr 16.20 ng/L (0-15) H 09/30/21 01:31 Troponin T Hi Sens 6Hr Delta -2.80 ng/L (0-12) L 09/30/21 01:31 Total Protein 7.2 g/dL (6.6-8.7) 10/01/21 03:45 Albumin 4.1 g/dL (3.5-5.2) 10/01/21 03:45 Globulin 3.1 g/dL (1.3-4.6) 10/01/21 03:45 TSH 1.74 uIU/mL (0.27-4.20) 09/29/21 19:52 Vitals Last Vital Signs Temp 98.2 F 10/01/21 12:20 Pulse 87 10/01/21 12:20 Resp 23 H 10/01/21 12:20 BP 162/84 10/01/21 12:20 Pulse Ox 96 10/01/21 12:20 Discharge Plan Discharge Patient Disposition: Home Condition: Stable Prescriptions: New clonidine HCl 0.1 mg Tablet 0.3 mg PO BID Qty: 180 0RF isosorbide mononitrate 30 mg tablet extended release 24 hr 30 mg PO DAILY Qty: 90 0RF nifedipine 20 mg capsule 20 mg PO DAILY PRN (Reason: blood pressure) Qty: 30 0RF Rx Instructions: For blood pressure >180 systolic or >100 diastolic Continued aspirin [Adult Low Dose Aspirin] 81 mg tablet,delayed release (DR/EC) 81 mg PO DAILY 0RF nitroglycerin [Nitrostat] 0.4 mg tablet, sublingual 0.4 mg SUBLINGUAL Q5M PRN (Reason: Chest Pain) 0RF omega-3 fatty acids [Fish Oil Concentrate] 1,000 mg capsule 1,000 mg PO BID 0RF fluticasone propionate [Allergy Relief (fluticasone)] 50 mcg/actuation spray,suspension 1 spray INTRANASAL BID 0RF melatonin [Melatin] 3 mg tablet 3 mg PO BEDTIME 0RF tamsulosin 0.4 mg capsule 0.4 mg PO DAILY 0RF omeprazole 20 mg capsule,delayed release(DR/EC) 20 mg PO DAILY 0RF metformin 500 mg tablet 1,000 mg PO BID 0RF rosuvastatin [Crestor] 40 mg tablet 20 mg PO BEDTIME 0RF primidone 50 mg tablet 50 mg PO BEDTIME 0RF mecobalamin (vitamin B12) 1,000 mcg tablet,disintegrating 2,500 mcg sublingual DAILY 0RF Rx Instructions: place tablet under tongue and allow to dissolve for at least30 secs before swallowing H2Q CoQ10 200 mg/gram powder 100 mg PO DAILY 0RF triamcinolone acetonide 0.1 % cream 1 applic topical DAILY 0RF cinnamon bark [Cinnamon] 500 mg capsule 1,000 mg PO DAILY 0RF magnesium oxide 400 mg magnesium capsule 400 mg PO DAILY 0RF alprazolam 0.5 mg tablet 0.5 mg PO BID PRN (Reason: anxiety) 0RF metoprolol succinate 100 mg tablet extended release 24 hr 100 mg PO BID 0RF hydralazine 100 mg tablet 100 mg PO TID 0RF sertraline 100 mg tablet 100 mg PO DAILY 0RF loratadine 10 mg capsule 10 mg PO DAILY 0RF Held losartan 100 mg tablet 100 mg PO DAILY 0RF Hold Instructions: Resume on 10/15/21. Discontinued nifedipine 60 mg tablet extended release 60 mg PO DAILY 0RF Discharge Orders: Discharge Order (Routine); Ordered 10/01/21 Ordered By: Hay Haider Referrals: Charlene Webb BALL ASSEMBLER [Primary Care Provider] - 4-7 days (Please call for an follow-up appointment in 4 to 7 days. ) Discharge Diet: Cardiac Discharge Activity: Increase activity as tolerated Patient Instructions: Nifedipine (By mouth), Clonidine (By mouth), Isosorbide Mononitrate (By mouth) (Imdur, Imdur ER, Ismo), Chronic Hypertension (GEN), Hypertensive Crisis (GEN) Activity Restrictions/Additional Instructions: Please hold losartan for now until your kidney function can be followed up with your primary doctor at next appointment. Please continue measure blood pressures at least 3 times a day, as you guys have been doing. Please do not take any additional hydralazine as you are already on a high dose of that medication. However, if your blood pressure is rising above 180 top number or 100 bottom number, please take nifedipine 20 mg. Please do not take nifedipine 60 mg anymore since it brings down your blood pressure too low. Please note also nifedipine may interact sometimes with primidone. Again please do not take that medication standing, only as needed. You may consider taking Xanax in case you are feeling anxious which may sometimes help your blood pressure by alleviating anxiety. Nitroglycerin may decrease your blood pressure, take it in case you experience any chest pain or pressure. In case your blood pressure is low, please hold your blood pressure medications until your blood pressure rises to 120/80, then resume them one by one over 1-2 days. In case her blood pressure remains low, seek medical attention. In case you are having difficult time controlling the blood pressure despite taking her medications, please call 911. Please follow-up with your primary doctor, kidney specialist and hypertension specialist. Discharge Attestations Time Spent in Discharge Care*: greater than 30 min Quality Metrics Clinical Quality Measures [ No reported AMI, CVA or VTE this stay] Coding Level of Care Code Acute g [facility] note Diagnoses Hypertensive urgency I16.0 CKD (chronic kidney disease) N18.9 Chronic kidney disease stage: unspecified stage
== END 2021-10-01 13:26 | disposition home or self-care (01) | DRG 305 ==
LOC: ER 09-30 00:05 → MEDSURG 09-30 01:18 → CSU 09-30 01:22
PROVIDERS: Nurse Practitioner Family; Admitting Provider Internal Medicine; Emergency Provider Emergency Medicine; PCP Nurse Practitioner Family; Visit Provider Internal Medicine
DX: I16.0 Hypertensive urgency (principal); E87.1 Hypo-osmolality and hyponatremia; N17.9 Acute kidney failure, unspecified; I25.10 Atherosclerotic heart disease of native coronary artery without angina pectoris; Z95.5 Presence of coronary angioplasty implant and graft; E78.5 Hyperlipidemia, unspecified; E11.22 Type 2 diabetes mellitus with diabetic chronic kidney disease; I12.9 Hypertensive chronic kidney disease with stage 1 through stage 4 chronic kidney disease, or unspecified chronic kidney disease; N18.9 Chronic kidney disease, unspecified; E11.42 Type 2 diabetes mellitus with diabetic polyneuropathy; E11.51 Type 2 diabetes mellitus with diabetic peripheral angiopathy without gangrene; Z86.73 Personal history of transient ischemic attack (TIA), and cerebral infarction without residual deficits; G89.29 Other chronic pain; F41.9 Anxiety disorder, unspecified; K21.9 Gastro-esophageal reflux disease without esophagitis; E66.9 Obesity, unspecified; Z68.30 Body mass index [BMI] 30.0-30.9, adult; N40.0 Benign prostatic hyperplasia without lower urinary tract symptoms; Z79.82 Long term (current) use of aspirin; Z79.84 Long term (current) use of oral hypoglycemic drugs
CPT/HCPCS: 36415; 36416; 70450; 71045; 80048; 80053; 82962; 83735; 84443; 84484; 85025; 93005; 93306; 96372; 96374; 96376; 99285; J0360; J1815

== ENCOUNTER → 2021-10-12 12:22 | Outpatient (BNVA) | payer MEDICARE, SELFPAY | PROVIDERS: PCP Nurse Practitioner Family; Visit Provider Internal Medicine Cardiovascular Disease | DX: I16.0 Hypertensive urgency (principal); I12.9 Hypertensive chronic kidney disease with stage 1 through stage 4 chronic kidney disease, or unspecified chronic kidney disease; I65.29 Occlusion and stenosis of unspecified carotid artery; G89.29 Other chronic pain; E78.5 Hyperlipidemia, unspecified; I25.10 Atherosclerotic heart disease of native coronary artery without angina pectoris; Z86.73 Personal history of transient ischemic attack (TIA), and cerebral infarction without residual deficits; E11.22 Type 2 diabetes mellitus with diabetic chronic kidney disease; N18.9 Chronic kidney disease, unspecified; Z79.84 Long term (current) use of oral hypoglycemic drugs; Z95.820 Peripheral vascular angioplasty status with implants and grafts | CPT/HCPCS: 99214 ==

== ENCOUNTER → 2021-11-24 12:24 | Outpatient (BNVA) | payer OTHER, SELFPAY | PROVIDERS: PCP Nurse Practitioner Family; Visit Provider Internal Medicine Cardiovascular Disease | DX: Z53.9 Procedure and treatment not carried out, unspecified reason (principal) ==

== ENCOUNTER → 2021-11-25 10:41 | Outpatient (BNVA) | payer OTHER, SELFPAY | PROVIDERS: PCP Nurse Practitioner Family; Visit Provider Nurse Practitioner Family | DX: I10 Essential (primary) hypertension (principal) | CPT/HCPCS: 99213 ==

== ENCOUNTER → 2021-12-20 12:52 | Outpatient (BNVA) | payer OTHER, SELFPAY | PROVIDERS: PCP Nurse Practitioner Family; Visit Provider Internal Medicine Cardiovascular Disease | DX: I16.0 Hypertensive urgency (principal); Z95.820 Peripheral vascular angioplasty status with implants and grafts; I65.29 Occlusion and stenosis of unspecified carotid artery; G25.0 Essential tremor; E78.5 Hyperlipidemia, unspecified; I25.10 Atherosclerotic heart disease of native coronary artery without angina pectoris; Z86.73 Personal history of transient ischemic attack (TIA), and cerebral infarction without residual deficits; I10 Essential (primary) hypertension; E11.9 Type 2 diabetes mellitus without complications; Z79.84 Long term (current) use of oral hypoglycemic drugs | CPT/HCPCS: 99214 ==

== ENCOUNTER → 2022-08-21 08:54 | Outpatient (BNVA) | payer MEDICARE, SELFPAY | PROVIDERS: PCP Nurse Practitioner Family; Visit Provider Otolaryngology | DX: I95.1 Orthostatic hypotension (principal); R42 Dizziness and giddiness; I10 Essential (primary) hypertension; E11.29 Type 2 diabetes mellitus with other diabetic kidney complication; H91.93 Unspecified hearing loss, bilateral; H93.13 Tinnitus, bilateral | CPT/HCPCS: 99203 ==

== ENCOUNTER → 2023-05-29 12:37 | Outpatient (BNVA) | payer OTHER, SELFPAY | PROVIDERS: PCP Nurse Practitioner Family; Referring Provider Internal Medicine; Visit Provider Nurse Practitioner Family | DX: L08.1 Erythrasma (principal); L30.4 Erythema intertrigo; L82.1 Other seborrheic keratosis; S40.261A Insect bite (nonvenomous) of right shoulder, initial encounter; X58.XXXA Exposure to other specified factors, initial encounter | CPT/HCPCS: 99204 ==

== ENCOUNTER → 2023-08-23 13:12 | Outpatient (BNVA) | payer OTHER, SELFPAY | PROVIDERS: PCP Nurse Practitioner Family; Visit Provider Internal Medicine Cardiovascular Disease | DX: I12.9 Hypertensive chronic kidney disease with stage 1 through stage 4 chronic kidney disease, or unspecified chronic kidney disease (principal); E11.22 Type 2 diabetes mellitus with diabetic chronic kidney disease; N18.9 Chronic kidney disease, unspecified; I25.10 Atherosclerotic heart disease of native coronary artery without angina pectoris; Z95.820 Peripheral vascular angioplasty status with implants and grafts; E78.5 Hyperlipidemia, unspecified; I65.29 Occlusion and stenosis of unspecified carotid artery; I95.1 Orthostatic hypotension; G62.9 Polyneuropathy, unspecified; R06.02 Shortness of breath; R42 Dizziness and giddiness; Z86.73 Personal history of transient ischemic attack (TIA), and cerebral infarction without residual deficits | CPT/HCPCS: 99215 ==

== ENCOUNTER 2023-08-28 11:34 | Emergency (ER) | payer OTHER, SELFPAY ==
[2023-08-28] VITALS (8 sets, daily range): BP systolic 132–175; BP diastolic 62–83; PULSE 68–80; RESP 26; TEMP 36.8; O2SAT 92–94; BMI 32.5
--- NOTE | 2023-08-28 10:47 | ECG_ITS ---
[facility] Test Date: 2023-08-28 Pat Name: Enrique Wong Department: Room: Gender: Male Pattern Drafter: : 1950 Requested By: Maciej Klein Order Number: [id number] Delilah MD: Sai Venegas M.D. Measurements Intervals [place] Rate: 73 P: 49 SC: 200 QRS: 17 QRSD: 121 T: 55 QT: 391 QTc: 434 Interpretive Statements SINUS RHYTHM POSSIBLE RIGHT VENTRICULAR CONDUCTION DELAY [RSR (QR) IN V1/V2] Compared to ECG 09/30/2021 01:39:52 Sinus bradycardia no longer present Electronically Signed On 08-28-2023 23:05:11 CDT by Sai Venegas M.D. [id number]
--- NOTE | 2023-08-28 11:53 | XRR_ITS ---
PROCEDURE INFORMATION: Exam: XR Chest Exam date and time: 08/28/2023 12:28 PM Age: 72 years old Clinical indication: Dyspnea and shortness of breath; Additional info: Dyspnea/cough TECHNIQUE: Imaging protocol: Radiologic exam of the chest. Views: 1 view. COMPARISON: CR XR chest 1V portable [id number] 09/29/2021 8:22 PM FINDINGS: Lungs: Unremarkable. No consolidation. Pleural spaces: Unremarkable. No pleural effusion. No pneumothorax. Heart/Mediastinum: Unremarkable. No cardiomegaly. Bones/joints: Unremarkable. XR/XR chest 1V portable [id number] IMPRESSION: No acute findings.
--- NOTE | 2023-08-28 12:08 | CT_ITS ---
WS: [id number] CT ABDOMEN AND PELVIS NONCONTRAST HISTORY: Abdominal pain, distention TECHNIQUE: Imaging performed through the abdomen and pelvis. Coronal and sagittal reformats are submi tted. All CT scans at [facility] use at least one of these dose optimization techniques: auto mated exposure control; mA and/or kV adjustment per patient size (includes targeted exams where dose is matched to clinical indication); or iterative reconstruction. DLP: 882.90 mGy.cm COMPARISON: 10/02/2018 Lower thorax: Lung bases are clear. Visualized heart is normal. No hiatal hernia. Extensive coronary artery calcification. Liver: Scattered granulomata. No mass or dependent dilatation. Gallbladder: Prior cholecystectomy. Pancreas: Normal size and attenuation. Normal pancreatic duct. No pancreatitis or mass. Spleen: Normal. Adrenal glands: Normal. No mass. Right kidney: Mild perinephric stranding. No obstruction. Left kidney: Mild perinephric stranding with no obstruction. Too small to characterize 6 mm nodule fr om the lateral kidney. Aorta: Moderate to severe atherosclerosis abdominal aorta. No aneurysm. Atherosclerosis continues int o the common iliac arteries. No free fluid, intraperitoneal air or significant lymphadenopathy. GI tract: Stomach is moderately distended with fluid. No small bowel obstruction. Appendix is normal. No colitis. No diverticulitis. Abdominal wall: Negative. No hernia. Pelvis: No free fluid or adenopathy. Urinary bladder is negative. Prostate enlargement with central c alcification. Osseous structures: No destructive bone lesions. IMPRESSION: 1. No acute abdominal or pelvic abnormalities. 2. No renal obstruction or ureteral calcifications. 3. Prior cholecystectomy. 4. Stomach is moderately distended with fluid but there is no obstructive pattern. 5. Normal appendix.
--- NOTE | 2023-08-28 12:22 | PC.PHAR ---
pts verified pts medications-pts states the pts amlodipine 5mg bid was put on hold 08/23/23-faxed [facility] for med list but pts states the pt only takes the medications entered
[2023-08-28 12:27] LABS: Basophils # 0.1 10^3/uL (0.0-0.1); Basophils % 0.6 %; Eosinophils # 0.2 10^3/uL (0.0-0.8); Hematocrit 37.2 % (37-53); Lymphocytes # 0.6 10^3/uL (0.8-4.8); Lymphocytes % 7.4 %; Mean Corpuscular HGB Conc 34.1 g/dL (30-55); Mean Corpuscular Hemoglobin 29.9 pg (27-33); Mean Corpuscular Volume 87.5 fl (82-101); Mean Platelet Volume 9.9 fL (7.4-10.4); Monocytes # 0.7 10^3/uL (0.2-0.9); Monocytes % 8.9 %; Neutrophils # 6.15 10^3/uL (1.8-7.7); Neutrophils % 79.7 %; Nucleated Red Blood Cells % 0 %; Platelet Count 173 10^3/cmm (157-399); Red Blood Count 4.25 10^6/uL (3.85-5.65); Red Cell Distribution Width 12.8 % (12.1-15.1); White Blood Count 7.72 10^3/uL (3.29-11.43)
[2023-08-28 12:43] LABS: Troponin(5th) Baseline 25 ng/L (0-15)
[2023-08-28 12:45] LABS: Alanine Aminotransferase 21 U/L (0-41); Alkaline Phosphatase 68 U/L (40-130); Anion Gap 14.3 (5-19); Aspartate Amino Transferase 20 U/L (0-40); Blood Urea Nitrogen 16 mg/dL (8-23); Calcium 8.2 mg/dL (8.5-10.5); Carbon Dioxide 27 mmol/L (22-29); Chloride 91 mmol/L (98-107); Creatinine Clr Calc Pharmacy 61.9344; Globulin 2.8 g/dL (1.3-4.6); Glucose 148 mg/dL (65-115); Lipase 67 U/L (13-60); Osmolality Calculated 270 mOsm/kg (285-295); Potassium 4.3 mmol/L (3.5-5.1); Sodium 128 mmol/L (136-145); Total Bilirubin 0.3 mg/dL (0.15-1.2); Total Protein 6.8 g/dL (6.6-8.7)
--- NOTE | 2023-08-28 12:58 | W.ED.ABDPA2 ---
HPI - Abdominal Pain General: Chief Complaint: Abdominal Pain Stated Complaint: sob, neck and bakc pain, abd pain, weakness Time Seen by Provider: 08/28/23 11:49 Source: patient Mode of arrival: ambulatory History of Present Illness: 72 male presents emergency room complaining of back pain and abdominal pain mostly focuses on epigastric pain. He has a headache with it as well became more severe yesterday. At times feeling member states he seems short of breath. Patient denies chest pain. No hx of CAD. Abd has seemed distended. No dysuria frequency or urgency. MD elicited complaint: abdominal pain Pain Consistency: intermittent Location: Epigastric Quality: cramping Radiation: none Exacerbating factors: nothing Relieving factors: nothing Associated Symptoms: Reports nausea; Denies anorexia, belching, bloating, change in bowel habits, change in stool character, chills, coffee ground emesis, constipation, GI cramping, diarrhea, dyspepsia, dysuria, excessive flatus, fever(s), heartburn, hematochezia, hematuria, hematemesis, fecal incontinence, loose stools, melena, poor appetite, syncope and vomiting Review of Systems Const: Denies: fever(s) or chills Card: Denies: chest pain or syncope Resp: Denies: dyspnea GI: Reports: abdominal pain and nausea; Denies: vomiting, hematemesis, coffee ground emesis, heartburn, diarrhea, constipation, bloating, GI cramping, belching, excessive flatus, fecal incontinence, change in bowel habits, change in stool character, hematochezia or melena : Denies: dysuria, urinary frequency, urinary urgency or hematuria Musc: Denies: neck pain or back pain Skin/Breast: Denies: rash PFSH ED PFSH: Medical History Depression Obesity Diverticulosis Carotid stenosis Tingling of right upper extremity Chronic pain Hyperlipidemia Peripheral neuropathy ASHD (arteriosclerotic heart disease) CVA (cerebral vascular accident) Essential hypertension Diabetes CKD (chronic kidney disease) PAD (peripheral artery disease) SOB (shortness of breath) GERD (gastroesophageal reflux disease) Essential tremor Surgical History S/P cholecystectomy S/P cervical spinal fusion S/P angioplasty with stent Family History Other Cancer Diabetes Hypertension Social History Smoking and tobacco/nicotine status: never used tobacco/nicotine Alcohol intake: current Alcohol intake frequency: 0-2 Drinks per Day Alcohol type: beer Substance/Drug Use: never Household members: spouse Marital status: service: Yes branch: [employer] Current occupational status: employed Current occupation: [employer] Current gender identity: Male Physical Exam Const: COMMON NORMALS: no acute distress GENERAL APPEARANCE: cooperative and comfortable ORIENTATION/CONSCIOUSNESS: Yes awake, Yes oriented to person, Yes oriented to place and Yes oriented to time HENMT: COMMON NORMALS: normocephalic, atraumatic and hearing grossly normal bilaterally HEAD & SCALP: normocephalic and atraumatic Resp: COMMON NORMALS: normal respiratory effort, No retractions, No use of accessory muscles and clear to auscultation bilaterally AUSCULTATION: clear to auscultation bilaterally Cardio: COMMON NORMALS: regular rate, regular rhythm and No murmurs present (Cardio) RATE: regular rate RHYTHM: regular rhythm GI: COMMON NORMALS: Soft to palpation and No hepatosplenomegaly present AUSCULTATION: Yes normoactive bowel sounds PALPATION: Yes Soft to palpation, No Tenderness to palpation present (GI), No Guarding due to palpation present (GI) and Yes No hepatosplenomegaly present Extremity: COMMON NORMALS: normal to inspection, capillary refill normal, no clubbing, cyanosis or edema, no calf tenderness and no pedal edema Neuro: SENSORIUM/ORIENTATION: Yes oriented to person, Yes oriented to place and Yes oriented to time Skin: COMMON NORMALS: no rashes or lesions noted GENERAL SKIN EXAM: no rashes or lesions noted Course Vital Signs: Vital signs: Vital Signs Temperature 98.2 F 08/28/23 11:41 Pulse Rate 68 08/28/23 14:30 Respiratory Rate 26 H 08/28/23 11:41 Blood Pressure 165/81 08/28/23 14:30 Pulse Oximetry 94 08/28/23 14:30 Oxygen Delivery Me thod Room Air 08/28/23 14:30 MDM - Abdominal Pain Medical Decision Making EKG shows normal sinus rhythm without acute ST changes. Cardiac enzymes negative CT abdomen negative. Blood pressure is elevated does have some very mild hyponatremia but I do not believe he is symptomatic of that at this point. Will discharge patient home changing from omeprazole to pantoprazole at isosorbide mononitrate set him up for an outpatient Lexiscan sestamibi stress test follow-up with his primary care doctor within the next week. Medical Records I reviewed the patient's medical records. Lab Data I reviewed the patient's lab results. 08/28/23 12:04 08/28/23 12:04 Labs/Radiology: Radiology Impressions Chest X-Ray 08/28/23 11:53 IMPRESSION: No acute findings. Laboratory Results WBC 7.72 10^3/uL (3.29-11.43) 08/28/23 12:04 RBC 4.25 10^6/uL (3.85-5.65) 08/28/23 12:04 Hgb 12.70 g/dL (11.27-16.99) 08/28/23 12:04 Hct 37.2 % (37-53) 08/28/23 12:04 MCV 87.5 fl (82-101) 08/28/23 12:04 MCH 29.9 pg (27-33) 08/28/23 12:04 MCHC 34.1 g/dL (30-55) 08/28/23 12:04 RDW 12.8 % (12.1-15.1) 08/28/23 12:04 Plt Count 173 10^3/cmm (157-399) 08/28/23 12:04 MPV 9.9 fL (7.4-10.4) 08/28/23 12:04 Neut % (Auto) 79.7 % 08/28/23 12:04 Lymph % (Auto) 7.4 % 08/28/23 12:04 [place] % (Auto) 8.9 % 08/28/23 12:04 Eos % (Auto) 3.0 % 08/28/23 12:04 Baso % (Auto) 0.6 % 08/28/23 12:04 Neut # (Auto) 6.15 10^3/uL (1.8-7.7) 08/28/23 12:04 Lymph # (Auto) 0.6 10^3/uL (0.8-4.8) L 08/28/23 12:04 [place] # (Auto) 0.7 10^3/uL (0.2-0.9) 08/28/23 12:04 Eos # (Auto) 0.2 10^3/uL (0.0-0.8) 08/28/23 12:04 Baso # (Auto) 0.1 10^3/uL (0.0-0.1) 08/28/23 12:04 Nucleated RBC % (auto) 0 % 08/28/23 12:04 Nucleated RBCs # 0.0 /100WBC 08/28/23 12:04 Sodium 128 mmol/L (136-145) L 08/28/23 12:04 Potassium 4.3 mmol/L (3.5-5.1) 08/28/23 12:04 Chloride 91 mmol/L (98-107) L 08/28/23 12:04 Carbon Dioxide 27 mmol/L (22-29) 08/28/23 12:04 Anion Gap 14.3 (5-19) 08/28/23 12:04 BUN 16 mg/dL (8-23) 08/28/23 12:04 Creatinine 1.2 mg/dL (0.7-1.2) 08/28/23 12:04 GFR Calculation Not Reportable 08/28/23 12:04 Glucose 148 mg/dL (65-115) H 08/28/23 12:04 Calculated Osmolality 270 mOsm/kg (285-295) L 08/28/23 12:04 Calcium 8.2 mg/dL (8.5-10.5) L 08/28/23 12:04 Total Bilirubin 0.3 mg/dL (0.15-1.2) 08/28/23 12:04 AST 20 U/L (0-40) 08/28/23 12:04 ALT 21 U/L (0-41) 08/28/23 12:04 Alkaline Phosphatase 68 U/L (40-130) 08/28/23 12:04 Troponin T Baseline 25 ng/L (0-15) H 08/28/23 12:04 Troponin T 120 Minute 22.77 ng/L (0-15) H 08/28/23 14:06 Delta Troponin T -2.23 ABS# (0-10) L 08/28/23 14:06 Total Protein 6.8 g/dL (6.6-8.7) 08/28/23 12:04 Albumin 4.0 g/dL (3.5-5.2) 08/28/23 12:04 Globulin 2.8 g/dL (1.3-4.6) 08/28/23 12:04 Lipase 67 U/L (13-60) H 08/28/23 12:04 All radiology interpretation(s) finalized by discharge Discharge Plan Discharge Patient Disposition: Home Clinical Impression: Dyspnea on exertion, Abdominal pain Condition: Stable Prescriptions: New isosorbide mononitrate 30 mg tablet extended release 24 hr 30 mg PO DAILY Qty: 30 0RF pantoprazole 40 mg tablet,delayed release (DR/EC) 40 mg PO BID 10 Days Qty: 40 0RF Rx Instructions: 1 pill twice daily for 10 days then 1 pill daily Discontinued omeprazole 40 mg capsule,delayed release(DR/EC) 40 mg PO BID No Action aspirin [Adult Low Dose Aspirin] 81 mg tablet,delayed release (DR/EC) 81 mg PO BEDTIME fluticasone propionate [Allergy Relief (fluticasone)] 50 mcg/actuation spray,suspension 1 spray INTRANASAL BID PRN (Reason: Allergy Symptoms) tamsulosin 0.4 mg capsule 0.4 mg PO BEDTIME triamcinolone acetonide 0.1 % cream 1 applic topical DAILY PRN (Reason: Rash) cinnamon bark [Cinnamon] 500 mg capsule 500 - 1,000 mg PO QAM magnesium oxide 400 mg magnesium capsule 400 mg PO BEDTIME alprazolam 0.5 mg tablet 0.5 mg PO BEDTIME sertraline 100 mg tablet 100 mg PO BEDTIME primidone 50 mg tablet 100 mg PO TID amlodipine 5 mg tablet 5 mg PO BID Rx Instructions: put on hold 08/23/23 per pts rosuvastatin 20 mg tablet 20 mg PO BEDTIME coenzyme Q10 100 mg tablet 100 mg PO QAM carvedilol 12.5 mg tablet 12.5 mg PO BID Fish Oil Concentrate 1,000 mg Capsule 2,000 mg PO DAILY Miralax 17 gram Powder In Packet 17 g PO DAILY PRN (Reason: Constipation) Zyrtec 10 mg Tablet 10 mg PO QAM melatonin 3 mg Tablet 6 mg PO BEDTIME metformin 1,000 mg Tablet 1,000 mg PO BID losartan 25 mg tablet 25 mg PO DAILY Nitrostat 0.4 mg Tablet, Sublingual 0.4 mg SUBLINGUAL Q5M PRN (Reason: Chest Pain) Rx Instructions: do not exceed 3 doses per episode Maalox 200-200-20 mg/5 mL Suspension 15 - 30 ml PO .ONE TIME DOSE Refresh 1 % Drops, Liquid Gel 1 drp OPHTHALMIC (EYE) BID clonidine HCl 0.1 mg tablet 0.1 mg PO BID@12, hydralazine 100 mg tablet 100 mg PO TID Discharge Orders: Discharge ED (Routine); Ordered 08/28/23 Ordered By: Maciej Dewitt Referrals: Charlene Webb [facility] [Primary Care Provider] - Discharge Diet: As Directed Discharge Activity: Limit activity as instructed Patient Instructions: Abdominal Pain (ED), Opioid Safety, Pain Management Activity Restrictions/Additional Instructions: Thank you for choosing [facility] for your healthcare needs today. Please realize this is an emergency room and that we are providing you with a medical screening exam and this may not be complete and all inclusive of all the testing and or work up that you may need to determine your ailment or severity of your illness. It is very important that you follow up as instructed or that you return to the Emergency Department should you have concerns or if your condition changes or worsens in any way. You were seen today for abdominal pain and shortness of breath CT of your abdomen did not show any acute abnormalities. Chest x-ray EKG and cardiac enzymes were also negative. It was noted that your blood pressure is mildly elevated. Recommend that you change from omeprazole to Protonix 40 mg twice daily additionally at isosorbide mononitrate 30 mg daily. Will set you up for an outpatient Lexiscan sestamibi stress test. You should also follow-up with your primary care doctor within the next week. Coding Level of Care Code ED Counter Tender for Virgilio Conn
--- NOTE | 2023-08-28 13:07 | ECG_ITS ---
[facility] Test Date: 2023-08-28 Pat Name: Enrique Wong Department: Room: Gender: Male Legal Intern: : 1950 Requested By: Maciej Klein Order Number: [id number] Delilah MD: Sai Venegas M.D. Measurements Intervals [place] Rate: 71 P: 35 GA: 191 QRS: 4 QRSD: 118 T: 53 QT: 396 QTc: 430 Interpretive Statements SINUS RHYTHM INCOMPLETE RIGHT BUNDLE BRANCH BLOCK [90+ ms QRS DURATION, TERMINAL R IN V1/V2, 40+ ms S IN I/aVL/V4/V5/V6] POSSIBLE INFERIOR MYOCARDIAL INFARCTION , PROBABLY OLD [30 ms Q WAVE IN II/aVF] Compared to ECG 08/28/2023 10:47:21 Incomplete right bundle-branch block now present Myocardial infarct finding now present Electronically Signed On 08-28-2023 23:21:47 CDT by Sai Venegas M.D. [id number]
[2023-08-28 14:41] LABS: Troponin 5 2HR 22.77 ng/L (0-15)
[2023-08-28 14:42] LABS: Troponin 5 2HR Delta -2.23 ABS# (0-10)
[2023-08-28 15:00] LABS: Add Urine Microscopic? YES; Amorphous Sediment Urine 1+ /hpf; Bacteria Urine 1+ /hpf; Bilirubin Urine Neg (Negative); Blood Urine Neg (Negative); Glucose Urine UA Norm (Normal); Ketones Urine Negative (Negative); Leukocyte Esterase Urine Negative (Negative); Nitrate Urine Negative (Negative); Protein Urine Trace (Negative); RBC Urine 0-4 /hpf (0-2); Squamous Epithelial Cell Urine 0-4 /hpf (0-5); Sulfosalicylic Acid Urine Negative (Negative); Urine Appearance Clear (CLEAR); Urine Color Yellow (Yellow); Urobilinogen Urine Norm (Negative); WBC Urine 0-4 /hpf (0-5); pH Urine 8 (5-7)
[2023-08-28 15:01] LABS: Add Urine Culture? No
--- NOTE | 2023-08-29 08:04 | DCPLANNER ---
Sent Out patient order for Lexiscan to centralized scheduling
== END 2023-08-28 15:22 | disposition home or self-care (01) ==
PROVIDERS: Emergency Provider Family Medicine; PCP Nurse Practitioner Family
DX: R10.13 Epigastric pain (principal); R06.00 Dyspnea, unspecified; Z79.82 Long term (current) use of aspirin; Z79.84 Long term (current) use of oral hypoglycemic drugs; E78.5 Hyperlipidemia, unspecified; E11.22 Type 2 diabetes mellitus with diabetic chronic kidney disease; I12.9 Hypertensive chronic kidney disease with stage 1 through stage 4 chronic kidney disease, or unspecified chronic kidney disease; N18.9 Chronic kidney disease, unspecified; Z86.73 Personal history of transient ischemic attack (TIA), and cerebral infarction without residual deficits
CPT/HCPCS: 36415; 71045; 74176; 80053; 81001; 83690; 84484; 85025; 93005; 99285

== ENCOUNTER 2023-09-28 09:56 | Outpatient (CLI) | payer OTHER, SELFPAY ==
--- NOTE | 2023-09-28 | ECG_ITS ---
[facility] Test Date: 2023-09-28 Pat Name: Enrique Wong Department: Room: Gender: Male Customer Service Driver: : 1950 Requested By: Josse Villanueva Order Number: [id number] Delilah MD: Shivam Cole M.D. Interpretive Statements NAME OF STUDY: LEXISCAN SESTAMIBI STRESS TEST INDICATION: [Chest Pain] Procedure: At the baseline, the blood pressure was 190/89 mmHg with a heart rate of 55 bpm. The electrocardiogram showed sinus bradycardia with no significant ST-T wave changes The Lexiscan was infused over a period of 20 seconds. A total of 0.4 mg of Lexiscan was infused. The stress phase was continued for a total of 5 minutes. Heart rate was at the end of stress phase was 64 bpm and a blood pressure of 152/75 mmHg. The EKG at the peak infusion revealed normal sinus rhythm with no significant ST-T wave changes. Sestamibi was injected 20 seconds after the Lexiscan infusion. Blood pressure at the end of recovery phase was 159/92 mmHg with a heart rate of 64 bpm. Conclusion: 1. Normal EKG response to Lexiscan infusion 2. No Lexiscan induced chest pain or cardiac arrhythmia. 3. Normal blood pressure and heart rate response. 4. Sestamibi/sestamibi perfusion scan pending; see separate report. Electronically Signed On 10-04-2023 12:48:18 CDT by Shivam Cole M.D. [id number]
[2023-09-28 10:22] VITALS: BMI 33.3
--- NOTE | 2023-09-28 10:23 | NMCV_ITS ---
NM reny perf SPECT r/s* [id number] Enrique Wong Age: 72 Gender: M : 1950 Exam Date: 09/28/2023 10:23 Ordering Phys: Josse Villanueva MD ([email or web address]) Technologist: RAFAEL Retana Exam Location: [facility] Indications: STENOSIS OF CAROTID ARTERY STRESS TEST Please [facility] IMAGE PROTOCOL Rest/Stress 1 Lexiscan Day Radiopharmaceutical Dose (mCi) Administration Site Administered by Rest: Tc-99m 11.0 IV RAFAEL Leiva Sestamibi Stress:Tc-99m 32.2 IV RAFAEL Leiva Sestamibi Rest: 28-Sep-2023 60 Discovery 630 Stress: 28-Sep-2023 30 Discovery 630 0.4mg Lexiscan. Images obtained in supine and prone position. SPECT RESULTS Technical Quality: Excellent Raw Data Analysis: Normal Image Corrections: No attenuation or motion correction applied Summed Stress Score: 2 Summed Rest Score: 1 Summed Difference Score: 1 PERFUSION FINDINGS Mild in intensity, small in size area of partially reversible perfusion defect is seen in the apical lateral wall. This is consistent with small area of prior infarct with minimal abelino-infarct ischemia in the Left circumflex artery territory. FUNCTIONAL RESULTS (calculated via Gated SPECT) Stress Image LV EF (%): 64 Stress EDV (mL):119 TID: 0.97 Stress ESV (mL):43 FUNCTIONAL FINDINGS: There is normal left ventricular systolic function. IMPRESSIONS 1. Small area of prior infarct with minimal abelino-infarct ischemia seen in the left circumflex artery territory. 2. LV systolic function is normal Shivam Cole MD (Electronically Signed) Final Date: 29 September 2023 14:35 S
[2023-09-28] MEDS: regadenoson 0.4 Mg/5 ml Syringe 0.400000000000000022 MG IVP (12:05)
[2023-09-28 12:21] VITALS: BP 132/64; PULSE 62
--- NOTE | 2023-09-28 14:45 | USCV_ITS ---
Enrique Wong Age: 72 Gender: M : 1950 Exam Date: 09/28/2023 11:11 Ordering Phys: Josse Villanueva MD ([email or web address]) Technologist: CT Exam Location: [facility] [place] Indication: stenosis Risk Factors: Previous Vascular Surgery: Right Brachial BP: / Left Brachial BP: / Right Left Velocity (cm/s) Spectral Plaque Velocity (cm/s) Spectral Plaque Syst/Diast Broadening Syst/Diast Broadening 72.40/ 16.70 Prox CCA 87.40 / 19.10 71.10/ 20.60 Mid CCA 75.60 / 16.10 63.40/ 18.00 Distal CCA 79.20 / 17.90 65.10/ 20.60 Prox ICA 114.00/ 22.30 69.50/ 17.60 Mid ICA 59.90 / 11.80 60.90/ 19.40 Distal ICA 58.30 / 20.30 111.20 ECA 104.40 1.10 ICA/CCA 1.40 Antegrade Vertebral Antegrade 36.80/ 0.00 cm/s 44.70/ 12.60 cm/s Bi Subclavian Bi 89.10 113.0 0 FINDINGS Comparison:. 09/16/21 No significant elevation of systolic or diastolic velocities. Waveforms are normal. Increase in plaque throughout the carotid arteries since the prior exam. Antegrade vertebral arteries. CONCLUSIONS Bilateral ICA stenosis less than 50%. Carotid atherosclerosis is in atherosclerosis since the prior exam. Dr. Amada Stewart DO (Electronically Signed) Final Date: 28 September 2023 13:02 S
== END 2023-09-28 09:57 | disposition home or self-care (01) ==
PROVIDERS: PCP Nurse Practitioner Family; Visit Provider Internal Medicine Cardiovascular Disease
DX: I65.23 Occlusion and stenosis of bilateral carotid arteries (principal)
CPT/HCPCS: 78452; 93017; 93880; A9500; J2785

== ENCOUNTER 2024-08-11 14:05 | Outpatient (CLI) | payer OTHER, SELFPAY ==
--- NOTE | 2024-08-11 14:07 | MR_ITS ---
WS: [id number] MRI RIGHT HIP WITHOUT CONTRAST. COMPARISON: None Multiplanar, multisequence imaging is performed without contrast. Comparison: CT 08/28/2023. No acute fracture or marrow edema involving either hip. Hip joints are narrowed bilaterally and symmetrically. Osteophytic ridging of the RIGHT acetabulum. Osteophytic extension along the lateral acetabulum. Minimal osteophytic ridging around the femoral head neck junction. No significant joint effusion. Very minimal amount of fluid and soft tissue edema over the greater trochanter. There is a very simple linear tear in the labrum anteriorly. No adenopathy. No significant muscle atrophy. Prostate gland is heterogeneous. MR/MR hip RT wo con* [id number] IMPRESSION: 1. No acute fracture. 2. Mild RIGHT hip joint space narrowing with acetabular osteophytic ridging. 3. Small anterior labral tear. 4. Minimal greater trochanteric bursitis.
== END 2024-08-11 14:06 | disposition home or self-care (01) ==
PROVIDERS: PCP Family Medicine; Visit Provider Internal Medicine
DX: Z01.89 Encounter for other specified special examinations (principal); M16.11 Unilateral primary osteoarthritis, right hip; R93.7 Abnormal findings on diagnostic imaging of other parts of musculoskeletal system; S73.191A Other sprain of right hip, initial encounter; X58.XXXA Exposure to other specified factors, initial encounter
CPT/HCPCS: 73721

== ENCOUNTER 2024-09-12 12:28 | Outpatient (CLI) | payer OTHER, SELFPAY ==
--- NOTE | 2024-09-12 12:32 | USCV_ITS ---
Enrique Wong Age: 73 Gender: M : 1950 Exam Date: 09/12/2024 12:44 Ordering Phys: Radha Nazario MD Technologist: USR [place] [facility] [place] Indication: lt facial numbness lt endarterectomy in 2003 Risk Factors: Previous Vascular Surgery: Right Brachial BP: / Left Brachial BP: / Right Left Velocity (cm/s) Spectral Plaque Velocity (cm/s) Spectral Plaque Syst/Diast Broadening Syst/Diast Broadening 75.00/ 13.80 Prox CCA 75.80 / 17.00 73.90/ 16.00 Mid CCA 107.00/ 24.80 78.70/ 14.90 Distal CCA 111.00/ 24.00 59.60/ 14.80 Prox ICA 74.10 / 9.00 60.60/ 19.80 Mid ICA 59.40 / 12.70 47.60/ 18.00 Distal ICA 63.60 / 8.50 120.10 ECA 107.10 0.80 ICA/CCA 0.70 Antegrade Vertebral Antegrade 39.30/ 10.00 cm/s 74.60/ 18.20 cm/s Tri Subclavian Bi 71.40 81.00 CONCLUSIONS Right ICA stenosis <50%. Moderate atheromatous plaque right carotid bulb/ICA. Left ICA stenosis <50%. Prior Left CEA Normal antegrade Doppler flow noted in the right vertebral artery. Normal antegrade Doppler flow noted in the left vertebral artery. Julius Corona MD (Electronically Signed) Final Date: 12 September 2024 14:58 S
--- NOTE | 2024-09-12 12:32 | CT_ITS ---
WS: [id number] CT NECK TECHNIQUE: Contrast-enhanced CT of the neck with coronal and sagittal reformatted images. CLINICAL INFORMATION: LEFT SIDED NODULE COMPARISON: None. DLP: 326.[address] scans at [facility] use at least one of these dose optimization techniques: automated exposure control; mA and/or kV adjustment per patient size (includes targeted exams where dose is matched to clinical indication); or iterative reconstruction. FINDINGS: Sphenoid sinusitis with air-fluid level. Mastoid air cells are well aerated. Noncalcified nodule RIGHT upper lobe measuring 6 mm. Increased attenuation fluid or silicone injection RIGHT orbit with calcification unchanged. Parotid glands are normal. Normal submandibular glands. Normal oropharynx. Normal parapharyngeal fat. Normal [place] tonsils. No evidence of supraglottic or glottic mass. Normal subglottic airway. Thyroid gland appears normal. Carotid bulb calcification. Dense cavernous carotid calcification. No cervical lymphadenopathy. Prior postoperative changes ACDF C5-C7. CT/CT neck w con* [id number] IMPRESSION: 1. Normal salivary glands. 2. No evidence supraglottic or glottic mass. 3. No cervical lymphadenopathy. 4. Bilateral carotid bulb calcification. 5. Prior postoperative changes ACDF C5-C7. 6. 6 mm noncalcified nodule RIGHT upper lobe 7. No other suspicious findings.
[2024-09-12] MEDS: iohexol 350 mg/mL 500 mL Btl (per mL) IV (13:36)
== END 2024-09-12 12:29 | disposition home or self-care (01) ==
PROVIDERS: PCP Family Medicine; Visit Provider Family Medicine
DX: R29.810 Facial weakness (principal); I65.23 Occlusion and stenosis of bilateral carotid arteries; Z98.890 Other specified postprocedural states; J32.3 Chronic sphenoidal sinusitis; R22.1 Localized swelling, mass and lump, neck
CPT/HCPCS: 70491; 93880

== ENCOUNTER 2024-11-21 06:49 | Outpatient (CLI) | payer OTHER, SELFPAY ==
--- NOTE | 2024-11-21 06:56 | CTR_ITS ---
PROCEDURE INFORMATION: Exam: CT Chest With Contrast; Diagnostic Exam date and time: 11/21/2024 7:24 AM Age: 74 years old Clinical indication: Abnormal findings; Lung mass or nodule; Not specified; Additional info: Rul nodule TECHNIQUE: Imaging protocol: Diagnostic computed tomography of the chest with contrast. Radiation optimization: All CT scans at this facility use at least one of these dose optimization techniques: automated exposure control; mA and/or kV adjustment per patient size (includes targeted exams where dose is matched to clinical indication); or iterative reconstruction. Contrast material: OMNI 350; Contrast volume: 100 ml; Contrast route: INTRAVENOUS (IV); COMPARISON: CR XR chest 1V portable [id number] 08/28/2023 12:28 PM RADIATION DOSE METRICS: Total DLP (mGy-cm): 509.74 FINDINGS: Lungs: There is a 7 mm partially calcified nodule within the right lung apex. A 4 mm calcified granuloma is noted in the right middle lobe. No other lung nodule or infiltrate noted. Pleural spaces: Unremarkable. No pneumothorax. No pleural effusion. Heart: Unremarkable. No cardiomegaly. No pericardial effusion. Lymph nodes: Unremarkable. No enlarged lymph nodes. Vasculature: Unremarkable. No aortic aneurysm. Bones/joints: Unremarkable. No acute fracture. Soft tissues: Unremarkable. CT/CT chest w con* [id number] IMPRESSION: 1. 7 mm partially calcified nodule in the right lung apex is favored to be a benign granuloma 2. For patients at low risk (minimal or absent history of smoking and of other known risk factors), no routine follow-up is indicated. For patients at high risk (history of smoking or of other known risk factors), consider optional CT Chest at 12 months. (Reference: Tomasa) REFERENCES: Tomasa Reddy et al. Guidelines for Management of Incidental Pulmonary Nodules Detected on CT Images: From the Fleischner Society 2017. Radiology. 2017;284(1):228-243.
[2024-11-21] MEDS: iohexol 350 mg/mL 500 mL Btl (per mL) IV (06:57)
[2024-11-21 07:21] LABS: Blood Urea Nitrogen 31 mg/dL (8-23)
== END 2024-11-21 06:50 | disposition home or self-care (01) ==
PROVIDERS: PCP Family Medicine; Visit Provider Family Medicine
DX: Z01.89 Encounter for other specified special examinations (principal); R91.1 Solitary pulmonary nodule; J84.10 Pulmonary fibrosis, unspecified
CPT/HCPCS: 71260; 82565; 84520

== ENCOUNTER 2024-12-04 14:53 | Outpatient (CLI) | payer MEDICARE, SELFPAY ==
--- NOTE | 2024-12-04 14:57 | MR_ITS ---
WS: [id number] MRI LUMBAR SPINE WITH AND WITHOUT CONTRAST HISTORY: LUMBAR RADICULITIS/SPINAL STENOSIS COMPARISON: 08/09/2021 TECHNIQUE: Sagittal and axial multisequence imaging is submitted. MultiHance 20 mL. Prior anterior cervical fusion C5-C7. Disc spaces are mildly narrowed in the cervical and thoracic spine. L4 anterolisthesis by 2 mm similar to the prior study. No marrow edema or fracture. Mild disc desiccation. Conus terminates normally at L1-2 disc level. L1-L2: Mild ligamentum flavum and facet arthritis. No stenosis. L2-L3: Mild ligamentum flavum and facet arthritis. No stenosis. Very minimal encroachment upon the RIGHT subarticular recess. L3-L4: Mild diffuse annular disc bulging with mild osteophytic ridging, ligamentum flavum and facet arthritis. Narrowing of the thecal sac, subarticular recesses and foramina. Moderate central, bilateral subarticular recess and foraminal stenosis, greater on the LEFT. There is significant contact on the traversing L4 nerve roots and the exiting LEFT L3 nerve root by disc osteophyte disease. Mild progression since the prior study. L4-L5: Diffuse annular disc bulging, marked facet and ligamentum flavum hypertrophy. LEFT hemilaminectomy defect is new. In the facet joints. Small central disc protrusion. Severe central, bilateral subarticular recess and foraminal stenosis. L5-S1: Mild annular disc bulging with mild bilateral foraminal stenosis. No discitis or osteomyelitis. Mild enhancement through the LEFT L4-5 hemilaminectomy defect. MR/MR lumbar spine wo/w con [id number] IMPRESSION: 1. LEFT hemilaminectomy defect at L4-5 is new since 08/09/2021. 2. Persistent severe central, bilateral subarticular recess and foraminal sten osis at L4-5 with disc osteophyte contact on the L4 and L5 nerve roots. 3. L3-4: Moderate central, bilateral subarticular recess and foraminal stenosi s, LEFT greater than RIGHT. Significant disc contact of the traversing L4 nerve roots and exiting LEFT L3 nerve root. Mild progression since the prior exam. 4. No discitis or osteomyelitis. 5. Multilevel facet joint arthritis, most significant at L3-4 and L4-5.
[2024-12-04] MEDS: gadobenate dimeglumine 20 mL vial IV (15:36)
== END 2024-12-04 14:54 | disposition home or self-care (01) ==
LOC: RAD 14:54
PROVIDERS: PCP Family Medicine; Visit Provider Physical Medicine & Rehabilitation Pain Medicine
DX: M54.16 Radiculopathy, lumbar region (principal); M48.062 Spinal stenosis, lumbar region with neurogenic claudication; M47.817 Spondylosis without myelopathy or radiculopathy, lumbosacral region; M51.372 Other intervertebral disc degeneration, lumbosacral region with discogenic back pain and lower extremity pain; M51.362 Other intervertebral disc degeneration, lumbar region with discogenic back pain and lower extremity pain; Z98.890 Other specified postprocedural states; M47.816 Spondylosis without myelopathy or radiculopathy, lumbar region
CPT/HCPCS: 72158

== ENCOUNTER 2025-05-28 11:55 | Outpatient (CLI) | payer OTHER, SELFPAY ==
--- NOTE | 2025-05-28 12:00 | CT_ITS ---
WS: [id number] CT chest w con* [id number] HISTORY: R LUNG NODULE FOLLOW UP TECHNIQUE: Axial imaging performed through the thorax. Coronal and sagittal reformats are submitted. All CT scans at [facility] use at least one of these dose optimization techniques: automated exposure control; mA and/or kV adjustment per patient size (includes targeted exams where dose is matched to clinical indication); or iterative reconstruction. CONTRAST: Omnipaque 350; 100 mL IV. DLP: 490.00 mGy.cm COMPARISON: 11/21/2024, 08/23/2024 Lungs and central airway: Stable 6 mm. Ovoid nodule RIGHT upper lobe. No definite calcifications are identified within this nodule on today's exam. Calcified nodule along the short minor fissure extends into the RIGHT upper lobe. No new or growing mass. No endobronchial lesions. Pleura: Normal. No pleural effusion. Heart and pericardium: Normal size heart with no pericardial effusion. Extensive coronary artery calcifications. Mediastinum and rebel: No pathologically enlarged lymph nodes. Vessels: Mild atherosclerosis aorta. Normal size pulmonary artery. Chest wall and lower neck: No soft tissue masses. Upper abdomen: Prior cholecystectomy. Mild hepatic steatosis. Hepatic and splenic granulomata. Visualized adrenal glands are normal. Suprarenal aortic calcification. Osseous structures: No destructive process. CT/CT chest w con* [id number] IMPRESSION: 1. Stable noncalcified 6 mm ovoid nodule RIGHT upper lobe since 08/23/2024. Tre gn granuloma adjacent to the RIGHT minor fissure. Recommend follow-up chest CT 6 to 12 months. 2. Extensive coronary artery calcifications. 3. Prior cholecystectomy. 4. No pathologically enlarged lymph nodes.
[2025-05-28 12:29] LABS: Blood Urea Nitrogen 26 mg/dL (8-23)
[2025-05-28] MEDS: iohexol 350 mg/mL 500 mL Btl (per mL) IV (12:41)
== END 2025-05-28 11:56 | disposition home or self-care (01) ==
LOC: RAD 11:55
PROVIDERS: PCP Family Medicine; Visit Provider Family Medicine
DX: R91.1 Solitary pulmonary nodule (principal); I25.84 Coronary atherosclerosis due to calcified coronary lesion; Z90.49 Acquired absence of other specified parts of digestive tract
CPT/HCPCS: 71260; 82565; 84520